=== PATIENT | male | born 1970 | race Caucasian/White ===

== ENCOUNTER 2019-12-28 00:42 | Emergency (ER) | payer SELFPAY ==
--- NOTE | 2019-12-28 01:03 | ER Document Report ---
ED Respiratory Problem - General Chief Complaint: Breathing Difficulty Stated Complaint: DIFFICULTY BREATHING Time Seen by Provider: 12/28/19 00:53 Mode of Arrival: Medic Information source: Patient Notes: Patient is a 49-year-old male with history of COPD presenting with cough, congestion and chills. Patient reports symptoms ongoing for the last few days. He denies any recent travel. Denies any exposure to any patients with COVID. Patient also reports nausea with vomiting over the last 24 hours that has now resolved. Denies any diarrhea or body aches. TRAVEL OUTSIDE OF THE [place] IN LAST 30 DAYS: No - Related Data Allergies/Adverse Reactions: No Known Allergies Allergy (Verified 03/19/15 17:25) Past Medical History - General Information source: Patient - Social History Smoking Status: Current Every Day Smoker Frequency of alcohol use: Occasional Family History: Other - Muscular dystrophy, CHF Patient has suicidal ideation: No Patient has homicidal ideation: No Pulmonary Medical History: Reports: Hx Asthma, Hx Bronchitis, Hx COPD, Hx Pneumonia Denies: Hx Tuberculosis Neurological Medical History: Denies: Hx Seizures GI Medical History: Reports: Hx Gastroesophageal Reflux Disease, Hx Hiatal Hernia, Hx Pancreatitis Musculoskeletal Medical History: Reports Hx Arthritis Psychiatric Medical History: Denies: Hx Depression Past Surgical History: Reports: Hx Abdominal Surgery - Repair of pancreatic aneurysm., Hx Orthopedic Surgery - rt knee. Denies: Hx Pacemaker - Immunizations Hx Diphtheria, Pertussis, Tetanus Vaccination: No Review of Systems - Review of Systems Constitutional: Chills EENT: No symptoms reported Cardiovascular: No symptoms reported Respiratory: Cough, Short of breath Gastrointestinal: Nausea, Vomiting Genitourinary: No symptoms reported Male Genitourinary: No symptoms reported Musculoskeletal: No symptoms reported Skin: No symptoms reported Hematologic/Lymphatic: No symptoms reported Neurological/Psychological: No symptoms reported Physical Exam - Vital signs Vitals: Pulse Ox 95 12/28/19 00:48 - Notes Notes: PHYSICAL EXAMINATION: GENERAL: Well-appearing, well-nourished and in no acute distress. HEAD: Atraumatic, normocephalic. EYES: Pupils equal round and reactive to light, extraocular movements intact, sclera anicteric, conjunctiva are normal. ENT: Nares patent, oropharynx clear without exudates. Moist mucous membranes. NECK: Normal range of motion, supple without lymphadenopathy LUNGS: Breath sounds clear to auscultation bilaterally and equal. No wheezes rales or rhonchi. HEART: Regular rate and rhythm without murmurs ABDOMEN: Soft, nontender, nondistended abdomen. No guarding, no rebound. No masses appreciated. Musculoskeletal: Normal range of motion, no pitting or edema. No cyanosis. NEUROLOGICAL: Cranial nerves grossly intact. Normal speech, normal gait. Normal sensory, motor exams PSYCH: Normal mood, normal affect. SKIN: Warm, Dry, normal turgor, no rashes or lesions noted. Course - Re-evaluation Re-evalutation: Patient appears well, nontoxic, work-up as outlined below. Patient received 125 Solu-Medrol and 1 DuoNeb by EMS. At the time of arrival he was mildly tachypneic but he had clear lung sounds and he reports he was feeling much improved. Laboratory 12/28/19 12/28/19 12/28/19 00:48 00:48 00:48 WBC 6.6 RBC 4.68 Hgb 13.5 Hct 40.7 MCV 87 MCH 28.9 MCHC 33.2 RDW 15.5 H Plt Count 77 L Lymph % (Auto) 21.2 [place] % (Auto) 7.2 Eos % (Auto) 0.6 Baso % (Auto) 0.6 Absolute Neuts (auto) 4.7 Absolute Lymphs (auto) 1.4 Absolute Monos (auto) 0.5 Absolute Eos (auto) 0.0 Absolute Basos (auto) 0.0 Seg Neutrophils % 70.4 VBG pH VBG pCO2 VBG HCO3 VBG Base Excess Sodium 135.7 L Potassium 3.4 L Chloride 99 Carbon Dioxide 30 Anion Gap 7 BUN 10 Creatinine 0.82 Est GFR ( Amer) > 60 Est GFR (MDRD) Non-Af > 60 Glucose 100 Calcium 8.4 Total Bilirubin 0.8 Direct Bilirubin 0.0 Neonat Total Bilirubin Not Reportable Neonat Direct Bilirubin Not Reportable Neonat Indirect Bili Not Reportable AST 32 ALT 13 Alkaline Phosphatase 141 H Troponin I < 0.012 NT-Pro-B Natriuret Pep 37 Total Protein 7.0 Albumin 3.7 Influenza A (Rapid) Influenza B (Rapid) 12/28/19 12/28/19 01:12 01:12 WBC RBC Hgb Hct MCV MCH MCHC RDW Plt Count Lymph % (Auto) [place] % (Auto) Eos % (Auto) Baso % (Auto) Absolute Neuts (auto) Absolute Lymphs (auto) Absolute Monos (auto) Absolute Eos (auto) Absolute Basos (auto) Seg Neutrophils % VBG pH 7.48 H VBG pCO2 42.0 VBG HCO3 30.7 VBG Base Excess 6.6 Sodium Potassium Chloride Carbon Dioxide Anion Gap BUN Creatinine Est GFR ( Amer) Est GFR (MDRD) Non-Af Glucose Calcium Total Bilirubin Direct Bilirubin Neonat Total Bilirubin Neonat Direct Bilirubin Neonat Indirect Bili AST ALT Alkaline Phosphatase Troponin I NT-Pro-B Natriuret Pep Total Protein Albumin Influenza A (Rapid) NEGATIVE Influenza B (Rapid) NEGATIVE Chest X-Ray 12/28/19 01:03 IMPRESSION: Chronic appearing pleural parenchymal scarring involving the left hemithorax is similar in appearance to prior exam. The possibility of superimposed infectious process is not excluded. Clinical correlation is advised. Patient was monitored in the emergency department for several hours. His vital signs have normalized. He will be treated for a COPD exacerbation. Although patient did complain of nausea and vomiting he has not had any episodes of vomiting here in the emergency department he will also be sent home with a dispense pack of Zofran for this. He was given information on the [facility] encouraged to follow-up with them to establish primary care. 12/28/19 03:33 - Vital Signs Vital signs: Temp Pulse Resp BP Pulse Ox 98.6 F 21 H 146/76 H 94 12/28/19 00:52 12/28/19 03:01 12/28/19 03:01 12/28/19 03:01 - Laboratory Result Diagrams: 12/28/19 00:48 12/28/19 00:48 Laboratory results interpreted by me: 12/28/19 12/28/19 12/28/19 00:48 00:48 01:12 RDW 15.5 H Plt Count 77 L VBG pH 7.48 H Sodium 135.7 L Potassium 3.4 L Alkaline Phosphatase 141 H Discharge - Discharge Clinical Impression: COPD exacerbation Condition: Stable Disposition: HOME, SELF-CARE Additional Instructions: You were seen for a COPD exacerbation. Your symptoms improved with treatment here in the emergency department. However, it is very important that you return to the emergency department immediately if you began to have worsening difficulty breathing that does not respond to your normal home nebulizers. You are also being sent home on a five-day course of steroids that you should start taking tomorrow. Please also take the antibiotics as prescribed. Please also follow closely with your primary care physician. You should eturn to emergency department if you develop fever greater than 101, persistent cough, persistent vomiting, pass out, or any other symptoms that are concerning to you. Prescriptions: Prednisone [Deltasone 20 mg Tablet] 2 tab PO DAILY 5 Days #10 tablet Doxycycline Hyclate [Vibramycin 100 mg Tablet] 100 mg PO BID #20 tablet
[2019-12-28 01:11] LABS: ABSOLUTE LYMPHOCYTES (AUTO) 1.4 10^3/uL (0.5-4.7); ABSOLUTE MONOCYTES (AUTO) 0.5 10^3/uL (0.1-1.4); ABSOLUTE NEUT (AUTO) 4.7 10^3/uL (1.7-8.2); BASOPHILS % (AUTO) 0.6 % (0-2); EOSINOPHILS % (AUTO) 0.6 % (0-6); HEMATOCRIT 40.7 % (37.9-51.0); HEMOGLOBIN 13.5 g/dL (13.5-17.0); LYMPHOCYTES % (AUTO) 21.2 % (13-45); MEAN CORPUSCULAR HEMOGLOBIN 28.9 pg (27.0-33.4); MEAN CORPUSCULAR HGB CONC 33.2 g/dL (32.0-36.0); MEAN CORPUSCULAR VOLUME 87 fl (80-97); MONOCYTES % (AUTO) 7.2 % (3-13); RED BLOOD COUNT 4.68 10^6/uL (4.35-5.55); RED CELL DISTRIBUTION WIDTH 15.5 % (11.5-14.0); SEGMENTED NEUTROPHILS % (AUTO) 70.4 % (42-78); TOTAL CELLS COUNTED % (AUTO) 100 %; WHITE BLOOD COUNT 6.6 10^3/uL (4.0-10.5)
[2019-12-28 01:19] LABS: ALBUMIN 3.7 g/dL (3.5-5.0); ALKALINE PHOSPHATASE 141 U/L (38-126); ANION GAP 7 (5-19); ASPARTATE AMINO TRANSFERASE 32 U/L (17-59); BILIRUBIN,TOTAL 0.8 mg/dL (0.2-1.3); BLOOD UREA NITROGEN 10 mg/dL (7-20); CALCIUM 8.4 mg/dL (8.4-10.2); CARBON DIOXIDE 30 mmol/L (22-30); CHLORIDE 99 mmol/L (98-107); GLUCOSE 100 mg/dL (75-110); POTASSIUM 3.4 mmol/L (3.6-5.0)
[2019-12-28 01:36] LABS: VENOUS BLOOD BASE EXCESS 6.6 mmol/L; VENOUS BLOOD HCO3 30.7 mmol/L (20-32); VENOUS BLOOD PH 7.48 (7.30-7.42)
[2019-12-28 01:45] LABS: NT PRO BNP 37 pg/mL (<125); PLATELET COUNT 77 10^3/uL (150-450); TROPONIN I < 0.012 ng/mL
--- NOTE | 2019-12-28 01:45 | RADIOLOGY REPORT (SQ) ---
EXAM DESCRIPTION: X-RAY CHEST- One View CLINICAL HISTORY: Cough and chills COMPARISON: June 08, 2014 TECHNIQUE: Single view of the chest. FINDINGS: Chronic appearing pleural parenchymal scarring along the left hemithorax is similar in appearance to prior exam, with stable blunting of the left costophrenic angle. The pulmonary vascularity is normal. The cardiomediastinal silhouette is stable in appearance. Osseous structures are grossly unchanged. IMPRESSION: Chronic appearing pleural parenchymal scarring involving the left hemithorax is similar in appearance to prior exam. The possibility of superimposed infectious process is not excluded. Clinical correlation is advised.
[2019-12-28 02:01] LABS: A TYPE INFLUENZA AG NEGATIVE (NEGATIVE); B INFLUENZA AG NEGATIVE (NEGATIVE)
[2019-12-28] MEDS ORDERED: DOXYCYCLINE HYCLATE 100 MG TABLET PO ONE (02:50)
[2019-12-28] MEDS ORDERED: PREDNISONE 20 MG TABLET PO ONE (02:50)
[2019-12-28 03:20] VITALS: BP 146/76
[2019-12-28] MEDS ORDERED: ONDANSETRON ODT 4 MG TAB (6 TAB/ER DISP) PO PRN (03:30)
--- NOTE | 2019-12-28 07:37 | EKG REPORT ---
SEVERITY:- OTHERWISE NORMAL ECG - SINUS RHYTHM LEFT AXIS DEVIATION : Confirmed by: Noé Cook MD 28-Dec-2019 07:37:15
== END 2019-12-28 03:38 | disposition home or self-care (01) ==
LOC: ER 00:42
DX: J44.1 Chronic obstructive pulmonary disease with (acute) exacerbation (principal); R05 Cough; R68.83 Chills (without fever); R11.2 Nausea with vomiting, unspecified; R06.02 Shortness of breath; F17.200 Nicotine dependence, unspecified, uncomplicated; Z87.01 Personal history of pneumonia (recurrent)
CPT/HCPCS: 93005; 99285; 36415; 87040; 85025; 80053; 84484; 82803; 87804; 83880; 71045; 93010; J7512

== ENCOUNTER 2020-08-06 21:14 | Inpatient (IN) | payer SELFPAY ==
[2020-08-06 21:37] LABS: VENOUS BLOOD BASE EXCESS -12.6 mmol/L; VENOUS BLOOD HCO3 14.3 mmol/L (20-32); VENOUS BLOOD PCO2 35.9 mmHg (35-63); VENOUS BLOOD PH 7.22 (7.30-7.42)
[2020-08-06 21:38] LABS: ABSOLUTE EOSINOPHILS # (AUTO) 0.1 10^3/uL (0.0-0.6); ABSOLUTE LYMPHOCYTES (AUTO) 0.9 10^3/uL (0.5-4.7); ABSOLUTE MONOCYTES (AUTO) 0.7 10^3/uL (0.1-1.4); ABSOLUTE NEUT (AUTO) 3.2 10^3/uL (1.7-8.2); BASOPHILS % (AUTO) 0.7 % (0-2); HEMATOCRIT 37.8 % (37.9-51.0); HEMOGLOBIN 12.2 g/dL (13.5-17.0); LYMPHOCYTES % (AUTO) 19.2 % (13-45); MEAN CORPUSCULAR HEMOGLOBIN 30.5 pg (27.0-33.4); MEAN CORPUSCULAR HGB CONC 32.2 g/dL (32.0-36.0); MEAN CORPUSCULAR VOLUME 95 fl (80-97); MONOCYTES % (AUTO) 14.9 % (3-13); PLATELET COUNT 185 10^3/uL (150-450); RED BLOOD COUNT 3.99 10^6/uL (4.35-5.55); RED CELL DISTRIBUTION WIDTH 14.3 % (11.5-14.0); SEGMENTED NEUTROPHILS % (AUTO) 64.2 % (42-78); TOTAL CELLS COUNTED % (AUTO) 100 %; WHITE BLOOD COUNT 4.9 10^3/uL (4.0-10.5)
[2020-08-06 21:52] LABS: ALBUMIN 3.3 g/dL (3.5-5.0); ALKALINE PHOSPHATASE 104 U/L (38-126); ASPARTATE AMINO TRANSFERASE 13 U/L (17-59); BILIRUBIN,DIRECT 0.2 mg/dL (0.0-0.4); BILIRUBIN,TOTAL 0.4 mg/dL (0.2-1.3); BLOOD UREA NITROGEN 12 mg/dL (7-20); CALCIUM 8.7 mg/dL (8.4-10.2); CARBON DIOXIDE 11 mmol/L (22-30); CHLORIDE 97 mmol/L (98-107); POTASSIUM 3.9 mmol/L (3.6-5.0); TOTAL PROTEIN 5.9 g/dL (6.3-8.2)
[2020-08-06 21:57] LABS: APPEARANCE,URINE CLEAR; BILIRUBIN,URINE NEGATIVE (NEGATIVE); COLOR,URINE STRAW; GLUCOSE, URINE >=500 mg/dL (NEGATIVE); KETONES,URINE 80 mg/dL (NEGATIVE); LEUKOCYTE ESTERASE,URINE NEGATIVE (NEGATIVE); NITRITE,URINE NEGATIVE (NEGATIVE); PROTEIN,URINE NEGATIVE (NEGATIVE); URINE SPECIFIC GRAVITY 1.026; UROBILINOGEN,URINE NEGATIVE mg/dL (<2.0)
[2020-08-06 21:59] LABS: ANION GAP 22 (5-19)
[2020-08-06 22:01] LABS: GLUCOSE 446 mg/dL (75-110)
[2020-08-06] MEDS ORDERED: RINGERS SOLUTION,LACTATED 1,000 ML IV ONE (22:07)
--- NOTE | 2020-08-06 22:07 | ER Document Report ---
ED General - General Chief Complaint: Dizziness Stated Complaint: DIZZINESS Time Seen by Provider: 08/06/20 21:58 Notes: Patient is a 50-year-old male that comes emergency department for chief complaint of 2 weeks of symptoms including dizziness, nausea, frequent urination, and he states he is suddenly started to lose weight "like crazy". He states he was unsteady on his feet and he was stumbling at home so he came in by ambulance for evaluation. He also notes that his legs have both become very swollen. He denies shortness of breath, chest pain, abdominal pain, fever/chills, headache. He does not have a history of diabetes. He has a history of COPD, continues to smoke, he also has a history of alcohol abuse and pancreatitis although he states he has not had alcohol in 2 weeks and he denies having withdrawal symptoms. He denies recreational drugs. TRAVEL OUTSIDE OF THE [place] IN LAST 30 DAYS: No - Related Data Allergies/Adverse Reactions: No Known Allergies Allergy (Verified 03/19/15 17:25) Past Medical History - General Information source: Patient - Social History Smoking Status: Current Every Day Smoker Frequency of alcohol use: Heavy Drug Abuse: None Lives with: Family Family History: Other - Muscular dystrophy, CHF Patient has homicidal ideation: No Pulmonary Medical History: Reports: Hx Asthma, Hx Bronchitis, Hx COPD, Hx Pneumonia Denies: Hx Tuberculosis Neurological Medical History: Denies: Hx Seizures GI Medical History: Reports: Hx Gastroesophageal Reflux Disease, Hx Hiatal Hernia, Hx Pancreatitis Musculoskeletal Medical History: Reports Hx Arthritis Psychiatric Medical History: Denies: Hx Depression Past Surgical History: Reports: Hx Abdominal Surgery - Repair of pancreatic aneurysm., Hx Orthopedic Surgery - rt knee. Denies: Hx Pacemaker - Immunizations Hx Diphtheria, Pertussis, Tetanus Vaccination: No Review of Systems - Review of Systems Constitutional: See HPI EENT: No symptoms reported Cardiovascular: No symptoms reported Respiratory: No symptoms reported Gastrointestinal: See HPI Genitourinary: No symptoms reported Male Genitourinary: No symptoms reported Musculoskeletal: No symptoms reported Skin: No symptoms reported Hematologic/Lymphatic: No symptoms reported Neurological/Psychological: See HPI Physical Exam - Vital signs Vitals: Resp Pulse Ox 17 92 08/06/20 21:23 08/06/20 21:23 - Notes Notes: GENERAL: Somewhat gaunt and chronically unwell appearing, however he does not appear to be in distress HEAD: Normocephalic, atraumatic. EYES: Pupils equal, round, and reactive to light. Extraocular movements intact. ENT: Oral mucosa dry, tongue midline. Oropharynx unremarkable. Airway patent. NECK: Full range of motion. Supple. Trachea midline. No lymphadenopathy. LUNGS: Clear to auscultation bilaterally, no wheezes, rales, or rhonchi. No respiratory distress. Non-tender chest wall. HEART: Regular rate and rhythm. No murmur ABDOMEN: Soft, non-tender. Non-distended. EXTREMITIES: Moves all 4 extremities spontaneously. No edema, normal radial and dorsalis pedis pulses bilaterally. No cyanosis. BACK: no cervical, thoracic, lumbar midline tenderness. No saddle anesthesia, normal distal neurovascular exam. Moves all extremities in full range of motion. NEUROLOGICAL: Alert and oriented x3. Normal speech. Cranial nerves II through XII grossly intact. Strength 5/5 in all extremities. PSYCH: Normal affect, normal mood. SKIN: Shun complexion Course - Re-evaluation Re-evalutation: Patient is thin, gaunt, somewhat unwell appearing but he is not in distress. His vital signs are unremarkable. He is cooperative and coherent. No concerning findings noted on physical exam other than dry mucous membranes. CBC shows mild normocytic anemia, chemistry concerning with bicarbonate of 11, elevated anion gap of 22, blood glucose of 467 in a patient with no previous history of diabetes renal functioning unremarkable. Lipase unremarkable. Potassium 3.9. Patient given 250 mL lactated Ringer bolus by EMS and 1000 mg bolus here. I suspect patient's new onset type 1 diabetes is secondary to his frequent pancreatitis and former alcohol abuse. Ketones noted in the urine. V enous blood gas is also noted to have metabolic acidosis, clinical picture is consistent with DKA and a new onset diabetic, patient was started on insulin drip and will require admission. I discussed with patient in detail. Patient states appreciation and agreement. Discussed with Dr. Duncan, hospitalist, patient accepted to [facility] full admission. - Vital Signs Vital signs: Temp Pulse Resp BP Pulse Ox 97.7 F 63 16 101/55 L 96 08/07/20 04:09 08/07/20 04:09 08/07/20 04:09 08/07/20 04:09 08/07/20 04:09 - Laboratory Result Diagrams: 08/06/20 21:23 08/06/20 21:23 Laboratory results interpreted by me: 08/06/20 08/06/20 08/06/20 21:23 21:23 21:23 RBC 3.99 L Hgb 12.2 L Hct 37.8 L RDW 14.3 H [place] % (Auto) 14.9 H VBG pH 7.22 L VBG HCO3 14.3 L Sodium 130.1 L Chloride 97 L Carbon Dioxide 11 L Anion Gap 22 H Glucose 446 H* AST 13 L Total Protein 5.9 L Albumin 3.3 L Urine Glucose (UA) Urine Ketones 08/06/20 21:37 RBC Hgb Hct RDW [place] % (Auto) VBG pH VBG HCO3 Sodium Chloride Carbon Dioxide Anion Gap Glucose AST Total Protein Albumin Urine Glucose (UA) >=500 H Urine Ketones 80 H - EKG Interpretation by Me Additional EKG results interpreted by me: EKG shows sinus rhythm at a rate of 72, left axis deviation, QTC of 491. No T wave inversions or ST segment changes in consecutive leads Discharge - Discharge Clinical Impression: Dizziness DKA (diabetic ketoacidoses) Qualifiers: Diabetes mellitus type: type 2 Diabetes mellitus complication detail: without coma Qualified Code(s): E11.10 - Type 2 diabetes mellitus with ketoacidosis without coma Condition: Stable Disposition: ADMITTED INPATIENT Admitting Provider: Perla (Hospitalist) Unit Admitted: [facility]
[2020-08-06] MEDS ORDERED: NORMAL SALINE 100 ML with INSULIN REGULAR, HUMAN 100 UNIT IV PRN ×2 (22:12)
[2020-08-06] MEDS ORDERED: DEXTROSE 50%-WATER 25 GM/50 ML DISP.SYRIN IV PRN ×2 (22:12)
[2020-08-06] MEDS ORDERED: GLUCAGON,HUMAN RECOMB 1 MG INJ IM PRN (22:12)
[2020-08-06] MEDS ORDERED: DEXTROSE 40% GEL 15 GM TUBE PO PRN ×2 (22:12)
[2020-08-06] MEDS ORDERED: INSULIN REG, HUMAN 100 UNIT/ML 3 ML VIAL (PYX) ONE (22:28)
--- NOTE | 2020-08-06 22:58 | RADIOLOGY REPORT (SQ) ---
EXAM DESCRIPTION: XR CHEST 1 VIEW COMPLETED DATE/TME: 08/06/2020 22:07 CLINICAL HISTORY: 50 years, Male, weakness COMPARISON: None. NUMBER OF VIEWS: 1 TECHNIQUE: Portable AP upright view of the chest was obtained at 10:30 PM. LIMITATIONS: None. FINDINGS: Chronic pleural parenchymal scarring changes are again identified on the left. There has been a slight increase in opacity within the periphery of the left midlung zone with superimposed pneumonia not excluded. Right lung is clear. Heart size is normal. There is no definite pleural effusion or pneumothorax. IMPRESSION: Mild asymmetric increased opacity in the periphery of the left midlung zone which could represent pneumonia superimposed on underlying scarring. Clinical correlation and attention on short-term follow-up chest x-ray recommended. copyright 2010 [employer]- All Rights Reserved
[2020-08-06] MEDS ORDERED: POTASSI CL 20 MEQ/50 ML RIDER 20 MEQ/50 ML RTUPB IV ONE (23:28)
[2020-08-06] MEDS ORDERED: MAGNESIUM HYDROXIDE SUSP 30 ML UDCUP PO PRN (23:59)
[2020-08-06] MEDS ORDERED: POTASSI CL 20 MEQ/NS 1L 1,000 ML IV PRN (23:59)
[2020-08-06] MEDS ORDERED: MAG HYDROX/AL HYDROX/SIMETH SUSP 30 ML UDCUP PO PRN (23:59)
[2020-08-07] MEDS ORDERED: NICOTINE 21 MG/24 HR PATCH.TD24 TD PRN (00:12)
[2020-08-07] MEDS ORDERED: LEVALBUTEROL HCL NEB 0.63 MG/3 ML AMPUL NEB PRN (00:12)
[2020-08-07] MEDS ORDERED: DIAZEPAM INJ 10 MG/2 ML DISP.SYRIN IV PRN (00:12)
[2020-08-07] MEDS ORDERED: DEXTROSE 5%-WATER 1000 ML 1,000 ML with SODIUM BICARBONATE 150 MEQ IV PRN ×2 (00:12)
[2020-08-07] MEDS ORDERED: ACETAMINOPHEN 650 MG SUPP.RECT PR PRN (00:19)
[2020-08-07] MEDS ORDERED: ACETAMINOPHEN 325 MG TABLET PO PRN (00:19)
[2020-08-07] MEDS ORDERED: MELATONIN 5 MG TABLET PO PRN (00:19)
[2020-08-07] MEDS ORDERED: GUAIFENESIN SYRP 200 MG/10 ML UDC PO PRN (00:19)
[2020-08-07] MEDS ORDERED: NORMAL SALINE 100 ML with INSULIN REGULAR, HUMAN 100 UNIT IV PRN ×2 (00:23)
[2020-08-07] MEDS ORDERED: DEXTROSE 40% GEL 15 GM TUBE PO PRN ×2 (00:23)
[2020-08-07] MEDS ORDERED: DEXTROSE 50%-WATER 25 GM/50 ML DISP.SYRIN IV PRN ×2 (00:23)
[2020-08-07] MEDS ORDERED: GLUCAGON,HUMAN RECOMB 1 MG INJ IM PRN (00:23)
[2020-08-07] MEDS ORDERED: INSULIN REG, HUMAN 100 UNIT/ML 3 ML VIAL (PYX) ONE (01:08)
[2020-08-07] MEDS: FAMOTIDINE INJ/PF 20 MG/2 ML SDV IV SCH ×3 (01:38→21:29)
[2020-08-07] MEDS ORDERED: SODIUM BICARBONATE 8.4% INJ 50 MEQ/50 ML DISP.SYRIN ONE ×2 (01:45→01:48)
[2020-08-07] MEDS: HEPARIN SOD (PORCINE) 5,000 UNIT/ML 1 ML VIAL SUBCUT SCH ×3 (05:25→21:25)
--- NOTE | 2020-08-07 05:49 | PDOC H&P ---
History of Present Illness Admission Date/PCP: 08/06/2020 23:38 No local PCP Patient complains of: Dizziness History of Present Illness: DONAVAN OSBORNE is a 50 year old male who presents to the emergency room with a 2- week history of dizziness. He admits developing orthostatic dizziness accom panied by nausea and associated with polyuria, weight loss, malaise and lower extremity edema. All of his symptoms have gradually increased in severity over the course of 2 weeks with his dizziness becoming severe today. He denies other associated or accompanying signs and symptoms. He denies prior similar episodes. He has not identified any aggravating or ameliorating factors for his orthostatic dizziness. In the emergency room he was found to have a blood sugar of 446, a potassium of 3.9, a venous blood gas pH of 7.22, a CO2 of 11 and ketonuria. He was started on an insulin infusion in the ER and subsequently admitted to the hospital for further evaluation and treatment. Past Medical History Cardiac Medical History: Denies: Atrial Fibrillation, Congestive Heart Failure, Coronary Artery Disease, DVT, Hyperlipidema, Hypertension, Pulmonary Embolism Pulmonary Medical History: Reports: Asthma, Bronchitis, Chronic Obstructive Pulmonary Disease (COPD), Pneumonia Denies: Tuberculosis EENT Medical History: Denies: Cataracts, Ears - Hearing aids Neurological Medical History: Denies: Hemorrhagic CVA, Ischemic CVA, Seizures Endocrine Medical History: Denies: Diabetes Mellitus Type 1, Diabetes Mellitus Type 2, Hyperthyroidism, Hypothyroidism, Obesity Renal/ Medical History: Denies: Chronic Kidney Disease, Nephrolithiasis Malignancy Medical History: Reports: None GI Medical History: Reports: Gastroesophageal Reflux Disease, Hiatal Hernia, Other - Alcoholic pancreatitis Denies: Cirrhosis, Hepatitis Musculoskeltal Medical History: Reports: Arthritis Denies: Gout Skin Medical History: Denies: Eczema, Psoriasis Psychiatric Medical History: Reports: Alcohol Dependency, Tobacco Dependency Denies: Depression, Substance Abuse Hematology: Denies: Anemia, Bleeding Tendencies Infectious Medical History: Reports: None Past Surgical History Past Surgical History: Reports: Orthopedic Surgery - rt knee, Other - Pancreatic pseudocyst drainage Social History Information Source: Patient Lives with: Spouse/Significant other Smoking Status: Current Every Day Smoker Electronic Cigarette use?: No Frequency of Alcohol Use: Heavy - No longer drinks on a daily basis but admits occasional binges Hx Recreational Drug Use: No Drugs: None Hx Prescription Drug Abuse: No - Advance Directive Resuscitation Status: Full Code Surrogate healthcare decision maker:: Dimple Castro Family History Family History: Other - Muscular dystrophy, CHF. denies: CAD, DM, Hypertension, Malignancy Parental Family History Reviewed: Yes Children Family History Reviewed: No Sibling(s) Family History Reviewed.: Yes Medication/Allergy Home Medications: Levofloxacin [Levaquin 750 mg Tablet] 750 mg PO DAILY #5 tablet 03/28/15 Doxycycline Hyclate [Vibramycin 100 mg Tablet] 100 mg PO BID #20 tablet 12/28/19 Prednisone [Deltasone 20 mg Tablet] 2 tab PO DAILY 5 Days #10 tablet 12/28/19 Allergies/Adverse Reactions: No Known Allergies Allergy (Verified 03/19/15 17:25) Review of Systems Constitutional: PRESENT: as per HPI, weight loss, other - Malaise. ABSENT: chills, fever(s) Eyes: ABSENT: visual disturbances, other - Eye pain Ears: ABSENT: hearing changes, other - Ear pain Nose, Mouth, and Throat: ABSENT: headache(s), sore throat Cardiovascular: PRESENT: as per HPI, edema. ABSENT: chest pain, palpitations Respiratory: ABSENT: cough, dyspnea Gastrointestinal: PRESENT: as per HPI, nausea. ABSENT: abdominal pain, constipation, diarrhea, vomiting Genitourinary: PRESENT: as per HPI, other - Polyuria. ABSENT: dysuria, hematuria Musculoskeletal: ABSENT: back pain, joint swelling Integumentary: ABSENT: pruritus, rash Neurological: PRESENT: as per HPI, dizziness. ABSENT: confusion, convulsions, focal weakness, memory loss, syncope Psychiatric: ABSENT: anxiety, depression Endocrine: PRESENT: polyuria. ABSENT: cold intolerance, heat intolerance Hematologic/Lymphatic: ABSENT: easy bleeding, easy bruising Allergic/Immunologic: ABSENT: seasonal rhinorrhea Physical Exam Vital Signs: Temp Pulse Resp BP Pulse Ox 97.6 F 87 12 121/77 96 08/06/20 21:32 08/06/20 21:34 08/06/20 22:01 08/06/20 22:00 08/06/20 22:01 Intake & Output 08/04/20 08/05/20 08/06/20 23:59 23:59 22:59 Weight 62.5 kg General appearance: PRESENT: no acute distress, cooperative Head exam: PRESENT: atraumatic, normocephalic Eye exam: PRESENT: conjunctiva pink. ABSENT: conjunctival injection, scleral icterus Ear exam: PRESENT: normal external ear exam. ABSENT: bleeding, drainage Mouth exam: PRESENT: dry mucosa, neck supple Neck exam: ABSENT: thyromegaly, tracheal deviation Respiratory exam: PRESENT: clear to auscultation dariana, symmetrical, unlabored Cardiovascular exam: PRESENT: RRR. ABSENT: clicks, gallop, rubs Pulses: PRESENT: normal carotid pulses, normal radial pulses Vascular exam: PRESENT: normal capillary refill. ABSENT: pallor GI/Abdominal exam: PRESENT: normal bowel sounds, soft. ABSENT: tenderness Rectal exam: PRESENT: deferred Extremities exam: PRESENT: pedal edema - Bilateral, +2 edema - 2+ pitting edema bilateral lower extremities to the distal thigh. ABSENT: joint swelling Musculoskeletal exam: ABSENT: deformity, dislocation Neurological exam: PRESENT: alert, oriented to person, oriented to place, oriented to time, oriented to situation, CN II-XII grossly intact. ABSENT: motor sensory deficit Psychiatric exam: PRESENT: appropriate affect, normal mood Skin exam: PRESENT: dry, intact, warm. ABSENT: jaundice, rash, urticaria Results Laboratory Results: 08/06/20 21:23 08/06/20 21:23 08/06/20 08/06/20 08/06/20 21:23 21:23 21:23 WBC 4.9 RBC 3.99 L Hgb 12.2 L Hct 37.8 L MCV 95 MCH 30.5 MCHC 32.2 RDW 14.3 H Plt Count 185 Seg Neutrophils % 64.2 VBG pH 7.22 L VBG pCO2 35.9 VBG HCO3 14.3 L VBG Base Excess -12.6 Sodium 130.1 L Potassium 3.9 Chloride 97 L Carbon Dioxide 11 L Anion Gap 22 H BUN 12 Creatinine 0.57 Est GFR ( Amer) > 60 Glucose 446 H* Calcium 8.7 Total Bilirubin 0.4 AST 13 L Alkaline Phosphatase 104 Total Protein 5.9 L Albumin 3.3 L Lipase Urine Color Urine Appearance Urine pH Ur Specific [place] Urine Protein Urine Glucose (UA) Urine Ketones Urine Blood Urine Nitrite Ur Leukocyte Esterase Urine WBC (Auto) Urine RBC (Auto) 08/06/20 08/06/20 21:23 21:37 WBC RBC Hgb Hct MCV MCH MCHC RDW Plt Count Seg Neutrophils % VBG pH VBG pCO2 VBG HCO3 VBG Base Excess Sodium Potassium Chloride Carbon Dioxide Anion Gap BUN Creatinine Est GFR ( Amer) Glucose Calcium Total Bilirubin AST Alkaline Phosphatase Total Protein Albumin Lipase 47.4 Urine Color STRAW Urine Appearance CLEAR Urine pH 6.0 Ur Specific [place] 1.026 Urine Protein NEGATIVE Urine Glucose (UA) >=500 H Urine Ketones 80 H Urine Blood NEGATIVE Urine Nitrite NEGATIVE Ur Leukocyte Esterase NEGATIVE Urine WBC (Auto) 0 Urine RBC (Auto) 0 Impressions: Chest X-Ray 08/06/20 22:07 IMPRESSION: Mild asymmetric increased opacity in the periphery of the left midlung zone which could represent pneumonia superimposed on underlying scarring. Clinical correlation and attention on short-term follow-up chest x-ray recommended. copyright 2010 [employer]- All Rights Reserved Assessment and Plan - Diagnosis (1) DKA (diabetic ketoacidoses) Qualifiers: Diabetes mellitus type: type 2 Diabetes mellitus complication detail: without coma Qualified Code(s): E11.10 - Type 2 diabetes mellitus with ketoacidosis without coma Is this a current diagnosis for this admission?: Yes (2) GERD (gastroesophageal reflux disease) Qualifiers: Esophagitis presence: with esophagitis Esophagitis bleeding: without hemorrhage Qualified Code(s): K21.00 - Gastro-esophageal reflux disease with esophagitis, without bleeding Is this a current diagnosis for this admission?: Yes (3) Chronic obstructive pulmonary disease (COPD) Qualifiers: COPD type: unspecified COPD Qualified Code(s): J44.9 - Chronic obstructive pulmonary disease, unspecified Is this a current diagnosis for this admission?: Yes (4) Bilateral lower extremity edema Is this a current diagnosis for this admission?: Yes (5) Tobacco abuse Is this a current diagnosis for this admission?: Yes - Plan Summary Summary: Patient will be admitted to [facility] where he will receive routine supportive and symptomatic cares. He will be treated with an insulin infusion per protocol. He will receive a bicarbonate infusion over the course of 3 hours. He will receive IV fluids using normal saline with 20 mEq potassium chloride per liter at 250 mL/h. Patient will be observed closely for any signs of alcohol withdrawal and will be treated with Valium 10 mg IV every 1 hour as needed for severe alcohol withdrawal symptoms. Serial metabolic profiles will be obtained. Serial venous blood gases will be obtained. An echocardiogram will be obtained. A registered dietitian consultation will be obtained. Patient will be maintained on a diabetic diet as tolerated. Smoking cessation is advised and counseled briefly at the bedside. A nicotine replacement patch is available for the patient's use, if desired. Additional laboratory and/or radiographic evaluations will be obtained as needed. - Time Time Spent with patient: 15-24 minutes Smoking Cessation Education: 3 to 10 minutes Medications reviewed and adjusted accordingly: No - No home meds Anticipated Discharge Disposition: Home, Self Care Anticipated Discharge Timeframe: within 72 hours - Inpatient Certification Based on my medical assessment, after consideration of the patient's comorbidities, presenting symptoms, or acuity I expect that the services needed warrant INPATIENT care.: Yes I certify that my determination is in accordance with my understanding of Medicare's requirements for reasonable and necessary INPATIENT services [42 CFR 412.3e].: Yes Medical Necessity: Need Close Monitoring Due to Risk of Patient Decompensation, Need For IV Fluids, Need For Continuous Telemetry Monitoring, Risk of Complication if Not Cared For in Hospital
--- NOTE | 2020-08-07 06:25 | EKG REPORT ---
SEVERITY:- BORDERLINE ECG - SINUS RHYTHM LEFT AXIS DEVIATION BORDERLINE PROLONGED QT INTERVAL : Confirmed by: Noé Cook MD 07-Aug-2020 06:23:58
[2020-08-07 06:29] LABS: VENOUS BLOOD BASE EXCESS -2.3 mmol/L; VENOUS BLOOD HCO3 23.6 mmol/L (20-32); VENOUS BLOOD PCO2 44.7 mmHg (35-63); VENOUS BLOOD PH 7.34 (7.30-7.42)
[2020-08-07 06:36] LABS: HEMATOCRIT 34.6 % (37.9-51.0); HEMOGLOBIN 11.9 g/dL (13.5-17.0); MEAN CORPUSCULAR HEMOGLOBIN 30.6 pg (27.0-33.4); MEAN CORPUSCULAR HGB CONC 34.4 g/dL (32.0-36.0); PLATELET COUNT 168 10^3/uL (150-450); RED BLOOD COUNT 3.89 10^6/uL (4.35-5.55); RED CELL DISTRIBUTION WIDTH 13.5 % (11.5-14.0); WHITE BLOOD COUNT 4.6 10^3/uL (4.0-10.5)
[2020-08-07 06:37] LABS: MEAN CORPUSCULAR VOLUME 89 fl (80-97)
[2020-08-07 06:52] LABS: ANION GAP 9 (5-19); BLOOD UREA NITROGEN 7 mg/dL (7-20); CALCIUM 7.6 mg/dL (8.4-10.2); CHLORIDE 102 mmol/L (98-107); CHOLESTEROL 78.12 mg/dL (0-200); GLUCOSE 102 mg/dL (75-110); TRIGLYCERIDES 69 mg/dL (<150)
[2020-08-07 07:25] LABS: CARBON DIOXIDE 22 mmol/L (22-30); DIRECT LDL < 30 mg/dL (<100)
[2020-08-07 07:27] LABS: POTASSIUM 2.9 mmol/L (3.6-5.0)
[2020-08-07] MEDS: METOCLOPRAMIDE HCL INJ/PF 10 MG/2 ML SDV IV SCH ×4 (08:18→21:29)
[2020-08-07] MEDS: POTASSI CL 20 MEQ/50 ML RIDER 20 MEQ/50 ML RTUPB IV SCH ×3 (08:18→10:58)
[2020-08-07] MEDS ORDERED: NORMAL SALINE 1000 ML 1,000 ML IV PRN (08:23)
[2020-08-07] MEDS: MAGNESIUM SULFATE/D5W 1 GM/100 ML RTUPB IV SCH ×3 (08:27→10:58)
[2020-08-07] MEDS ORDERED: LORAZEPAM INJ 2 MG/1 ML VIAL IV PRN ×7 (08:28→08:50)
[2020-08-07] MEDS: DOCUSATE SODIUM 100 MG CAPSULE PO SCH ×2 (09:42→17:40)
[2020-08-07] MEDS ORDERED: DOCUSATE SODIUM 100 MG/10 ML UDC PO SCH (10:00)
[2020-08-07 10:29] LABS: ALBUMIN 2.1 g/dL (3.5-5.0); ALKALINE PHOSPHATASE 63 U/L (38-126); ANION GAP 9 (5-19); ASPARTATE AMINO TRANSFERASE 12 U/L (17-59); BILIRUBIN,DIRECT 0.1 mg/dL (0.0-0.4); BILIRUBIN,TOTAL 0.2 mg/dL (0.2-1.3); BLOOD UREA NITROGEN 6 mg/dL (7-20); CALCIUM 7.3 mg/dL (8.4-10.2); CARBON DIOXIDE 19 mmol/L (22-30); CHLORIDE 105 mmol/L (98-107); GLUCOSE 136 mg/dL (75-110); POTASSIUM 3.4 mmol/L (3.6-5.0); TOTAL PROTEIN 4.3 g/dL (6.3-8.2)
[2020-08-07 15:24] LABS: ALBUMIN 2.2 g/dL (3.5-5.0); ALKALINE PHOSPHATASE 67 U/L (38-126); ANION GAP 9 (5-19); ASPARTATE AMINO TRANSFERASE 12 U/L (17-59); BILIRUBIN,DIRECT 0.1 mg/dL (0.0-0.4); BILIRUBIN,TOTAL 0.3 mg/dL (0.2-1.3); BLOOD UREA NITROGEN 5 mg/dL (7-20); CALCIUM 7.2 mg/dL (8.4-10.2); CARBON DIOXIDE 17 mmol/L (22-30); CHLORIDE 104 mmol/L (98-107); GLUCOSE 272 mg/dL (75-110); POTASSIUM 3.8 mmol/L (3.6-5.0); TOTAL PROTEIN 4.4 g/dL (6.3-8.2)
[2020-08-07] MEDS: INSULIN LISPRO 100 UNIT/ML 3 ML VIAL SUBCUT SCH ×3 (16:12→21:26)
[2020-08-07] MEDS ORDERED: IPRATROPIUM/ALBUTEROL 0.5-2.5 MG/3 ML AMPUL NEB PRN (17:00)
--- NOTE | 2020-08-07 17:01 | PDOC PROGRESS REPORT ---
Subjective Progress Note for:: 08/07/20 Subjective:: DONAVAN OSBORNE is a 50 year old male who presents to the emergency room with a 2- week history of dizziness. He admits developing orthostatic dizziness accompanied by nausea and associated with polyuria, weight loss, malaise and lower extremity edema. All of his symptoms have gradually increased in severity over the course of 2 weeks with his dizziness becoming severe today. He denies other associated or accompanying signs and symptoms. He denies prior similar e pisodes. He has not identified any aggravating or ameliorating factors for his orthostatic dizziness. In the emergency room he was found to have a blood sugar of 446, a potassium of 3.9, a venous blood gas pH of 7.22, a CO2 of 11 and ketonuria. He was started on an insulin infusion in the ER and subsequently admitted to the hospital for further evaluation and treatment. D2 Hospital stay. He was seen and bedside. He reports feeling much better. Denies any nausea and vomiting no chest pain no shortness of breath. When asked about his alcohol use he claimed that his last drink was 1 month ago. However when the nurse called his she claimed that he drank a fifth of alcohol a few days ago. He is not aware of any previous diagnosis of DM but he does have a history of pancreatitis. He also noted that he has been peeing a lot and drinking a lot the past few days and has lost weight. Reason For Visit: DIABETIC KETOACIDOSIS Physical Exam Vital Signs: Temp Pulse Resp BP Pulse Ox 97.6 F 74 14 98/60 L 97 08/07/20 11:14 08/07/20 14:00 08/07/20 13:12 08/07/20 11:14 08/07/20 13:12 Intake & Output 08/06/20 08/07/20 08/08/20 06:59 06:59 06:59 Intake Total 1277 797 Output Total 200 300 Balance 1077 497 Weight 71.5 kg General appearance: PRESENT: no acute distress, cooperative Head exam: PRESENT: atraumatic, normocephalic Eye exam: PRESENT: EOMI, PERRLA Mouth exam: PRESENT: moist Neck exam: PRESENT: full ROM Cardiovascular exam: PRESENT: RRR, +S1, +S2 Pulses: PRESENT: +2 pedal pulses bilateral GI/Abdominal exam: PRESENT: normal bowel sounds, soft. ABSENT: rebound, tenderness Extremities exam: PRESENT: +2 edema Musculoskeletal exam: PRESENT: full ROM Neurological exam: PRESENT: alert, awake, oriented to person, oriented to place, oriented to time, oriented to situation Psychiatric exam: PRESENT: normal mood Skin exam: PRESENT: normal color Results Laboratory Results: 08/07/20 06:21 08/07/20 14:32 08/06/20 08/06/20 08/06/20 21:23 21:23 21:23 WBC 4.9 RBC 3.99 L Hgb 12.2 L Hct 37.8 L MCV 95 MCH 30.5 MCHC 32.2 RDW 14.3 H Plt Count 185 Seg Neutrophils % 64.2 VBG pH 7.22 L VBG pCO2 35.9 VBG HCO3 14.3 L VBG Base Excess -12.6 Sodium 130.1 L Potassium 3.9 Chloride 97 L Carbon Dioxide 11 L Anion Gap 22 H BUN 12 Creatinine 0.57 Est GFR ( Amer) > 60 Glucose 446 H* Calcium 8.7 Magnesium Total Bilirubin 0.4 AST 13 L Alkaline Phosphatase 104 Total Protein 5.9 L Albumin 3.3 L Triglycerides Cholesterol LDL Cholesterol Direct VLDL Cholesterol HDL Cholesterol Lipase TSH Urine Color Urine Appearance Urine pH Ur Specific [place] Urine Protein Urine Glucose (UA) Urine Ketones Urine Blood Urine Nitrite Ur Leukocyte Esterase Urine WBC (Auto) Urine RBC (Auto) 08/06/20 08/06/20 08/06/20 21:23 21:23 21:37 WBC RBC Hgb Hct MCV MCH MCHC RDW Plt Count Seg Neutrophils % VBG pH VBG pCO2 VBG HCO3 VBG Base Excess Sodium Potassium Chloride Carbon Dioxide Anion Gap BUN Creatinine Est GFR ( Amer) Glucose Calcium Magnesium Total Bilirubin AST Alkaline Phosphatase Total Protein Albumin Triglycerides Cholesterol LDL Cholesterol Direct VLDL Cholesterol HDL Cholesterol Lipase 47.4 TSH 2.64 Urine Color STRAW Urine Appearance CLEAR Urine pH 6.0 Ur Specific [place] 1.026 Urine Protein NEGATIVE Urine Glucose (UA) >=500 H Urine Ketones 80 H Urine Blood NEGATIVE Urine Nitrite NEGATIVE Ur Leukocyte Esterase NEGATIVE Urine WBC (Auto) 0 Urine RBC (Auto) 0 08/07/20 08/07/20 08/07/20 06:21 06:21 06:21 WBC 4.6 RBC 3.89 L Hgb 11.9 L Hct 34.6 L MCV 89 D MCH 30.6 MCHC 34.4 RDW 13.5 Plt Count 168 Seg Neutrophils % VBG pH 7.34 VBG pCO2 44.7 VBG HCO3 23.6 VBG Base Excess -2.3 Sodium 132.6 L Potassium 2.9 L* D Chloride 102 Carbon Dioxide 22 D Anion Gap 9 BUN 7 Creatinine 0.31 L Est GFR ( Amer) > 60 Glucose 102 Calcium 7.6 L Magnesium 1.2 L* Total Bilirubin AST Alkaline Phosphatase Total Protein Albumin Triglycerides 69 Cholesterol 78.12 LDL Cholesterol Direct < 30 VLDL Cholesterol 14.0 HDL Cholesterol 40 Lipase TSH Urine Color Urine Appearance Urine pH Ur Specific [place] Urine Protein Urine Glucose (UA) Urine Ketones Urine Blood Urine Nitrite Ur Leukocyte Esterase Urine WBC (Auto) Urine RBC (Auto) 08/07/20 08/07/20 09:42 14:32 WBC RBC Hgb Hct MCV MCH MCHC RDW Plt Count Seg Neutrophils % VBG pH VBG pCO2 VBG HCO3 VBG Base Excess Sodium 132.8 L 129.9 L Potassium 3.4 L 3.8 Chloride 105 104 Carbon Dioxide 19 L 17 L Anion Gap 9 9 BUN 6 L 5 L Creatinine 0.29 L 0.48 L Est GFR ( Amer) > 60 > 60 Glucose 136 H 272 H Calcium 7.3 L 7.2 L Magnesium Total Bilirubin 0.2 0.3 AST 12 L 12 L Alkaline Phosphatase 63 67 Total Protein 4.3 L 4.4 L Albumin 2.1 L 2.2 L Triglycerides Cholesterol LDL Cholesterol Direct VLDL Cholesterol HDL Cholesterol Lipase TSH Urine Color Urine Appearance Urine pH Ur Specific [place] Urine Protein Urine Glucose (UA) Urine Ketones Urine Blood Urine Nitrite Ur Leukocyte Esterase Urine WBC (Auto) Urine RBC (Auto) Impressions: Chest X-Ray 08/06/20 22:07 IMPRESSION: Mild asymmetric increased opacity in the periphery of the left midlung zone which could represent pneumonia superimposed on underlying scarring. Clinical correlation and attention on short-term follow-up chest x-ray recommended. copyright 2011 [employer]- All Rights Reserved Assessment and Plan - Diagnosis (1) DKA (diabetic ketoacidoses) Qualifiers: Diabetes mellitus type: type 2 Diabetes mellitus complication detail: without coma Qualified Code(s): E11.10 - Type 2 diabetes mellitus with ketoacidosis without coma Is this a current diagnosis for this admission?: Yes Plan: -Not a known diabetic, came in due to dizziness, polyuria weight loss and lower extremity edema. 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 - history of recurrent pancreatitis - BG 446 in the ED with ketonuria - awaiting A1c - transitioned to long acting and with meals insulin plus sliding scale - Carb diet - plumber helper - hypoglycemia protocol - would need insulin on discharge (3) Alcohol use disorder Is this a current diagnosis for this admission?: Yes Plan: - according to him his last drink was 1 month ago but according to his he had been drinking consistently up until a few days ago - CIWA score q4 - ativan IV PRN according to CIWA score (4) Hypokalemia Is this a current diagnosis for this admission?: Yes Plan: - K 2.9>3.4>3.8 - 2/2 acidosis from DKA and insulin - replaced via IV - BMP daily (5) Bilateral lower extremity edema Is this a current diagnosis for this admission?: Yes Plan: - 2+ pitting edema no history of CHF - BNP pending - can be from new onset CHF or from hypoalbuminemia from poor oral intake due to alcoholism - alb 2.2 - awaiting echo - will monitor respiratory status as we are still hydrating him for DKA - leg elevation (6) Hyponatremia Is this a current diagnosis for this admission?: Yes Plan: - Na 129.9 corrected NA 132 - mild hyponatremia - will monitor for now (7) DVT prophylaxis Is this a current diagnosis for this admission?: Yes Plan: - sq heparin (8) Tobacco abuse Is this a current diagnosis for this admission?: Yes Plan: - counseling done - nicotine patch (9) Chronic obstructive pulmonary disease (COPD) Qualifiers: COPD type: unspecified COPD Qualified Code(s): J44.9 - Chronic obstructive pulmonary disease, unspecified Is this a current diagnosis for this admission?: Yes Plan: - Duoneb as needed - not on O2 - not in exacerbation - Plan Summary Summary: . - Time Time Spent with patient: 35 or more minutes Smoking Cessation Education: 3 to 10 minutes Medications reviewed and adjusted accordingly: Yes Anticipated Discharge Disposition: Home, Self Care Anticipated Discharge Timeframe: to be determined - Inpatient Certification Based on my medical assessment, after consideration of the patient's comorbidities, presenting symptoms, or acuity I expect that the services needed warrant INPATIENT care.: Yes I certify that my determination is in accordance with my understanding of Medicare's requirements for reasonable and necessary INPATIENT services [42 CFR 412.3e].: Yes Medical Necessity: Need For IV Fluids Post Hospital Care: 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
[2020-08-07 19:05] LABS: ALBUMIN 2.5 g/dL (3.5-5.0); ALKALINE PHOSPHATASE 73 U/L (38-126); ANION GAP 9 (5-19); ASPARTATE AMINO TRANSFERASE 13 U/L (17-59); BILIRUBIN,DIRECT 0.1 mg/dL (0.0-0.4); BILIRUBIN,TOTAL 0.2 mg/dL (0.2-1.3); BLOOD UREA NITROGEN 5 mg/dL (7-20); CALCIUM 7.7 mg/dL (8.4-10.2); CARBON DIOXIDE 21 mmol/L (22-30); CHLORIDE 102 mmol/L (98-107); GLUCOSE 210 mg/dL (75-110); POTASSIUM 3.4 mmol/L (3.6-5.0); TOTAL PROTEIN 4.8 g/dL (6.3-8.2)
--- NOTE | 2020-08-07 20:03 | XCELERA REPORT ---
[address] [address] Transthoracic Echocardiogram Report Name: DONAVAN OSBORNE Age: 50 yrs Gender: Male : 1970 Patient Status: Inpatient Patient Location: [address] [place] [address] Study Date: 08/07/2020 06:25 PM History: CHF Height: 68 in Weight: 157 lb BSA: 1.8 m2 Procedure: A complete two-dimensional transthoracic echocardiogram was performed (2D, M-mode, spectral and color flow Doppler). The study was technically difficult with many images being suboptimal in quality. Reason For Study: CHF, Acute onset bilateral lower extremity edema Previous Evaluation: No previous studies were available. History: CHF. Ordering Physician: SHILPA MOYA Performed By: Iris Britton Interpretation Summary Left ventricular systolic function is normal. The Ejection Fraction estimate is 55-60% There is a trace amount of mitral regurgitation There is a trace amount of tricuspid regurgitation Doppler findings do not suggest pulmonary hypertension. There is no aortic valve stenosis There is no pericardial effusion. MMode/2D Measurements & Calculations RVDd: 4.2 cm LVIDd: 5.0 cm FS: 31.3 % Ao root diam: 3.4 cm IVSd: 1.2 cm LVIDs: 3.4 cm EDV(Teich): 117.1 ml Ao root area: 8.9 cm2 LVPWd: 0.94 cm ESV(Teich): 48.1 ml LA dimension: 3.3 cm EF(Teich): 58.9 % Doppler Measurements & Calculations MV E max katt: MV P1/2t max katt: Ao V2 max: LV V1 max P.0 cm/sec 92.1 cm/sec 124.2 cm/sec 2.0 mmHg MV A max katt: MV P1/2t: 83.9 msec Ao max PG: LV V1 max: 84.7 cm/sec MVA(P1/2t): 2.6 cm2 6.2 mmHg 70.6 cm/sec MV E/A: 0.99 MV dec slope: 321.4 cm/sec2 MV dec time: 0.27 sec PA V2 max: PI end-d katt: TR max katt: MV P1/2t-pr_phl: 81.2 cm/sec 143.3 cm/sec 229.3 cm/sec 83.9 msec PA max PG: TR max P.6 mmHg 21.0 mmHg Left Ventricle The left ventricle is normal in size. There is borderline concentric left ventricular hypertrophy. Left ventricular systolic function is normal. The Ejection Fraction estimate is 55-60%. Doppler measurements suggest pseudonormalized left ventricular relaxation, which is associated with grade II/IV or mild to moderate diastolic dysfunction. Regional wall motion abnormalities cannot be excluded due to limited visualization. Right Ventricle The right ventricle is normal in size and function. Atria The right atrium is normal. The left atrium is borderline dilated. Mitral Valve The mitral valve is grossly normal. There is no mitral valve stenosis. There is a trace amount of mitral regurgitation. Aortic Valve The aortic valve is normal in structure and function. The aortic valve is trileaflet. The aortic valve opens well. There is no aortic valve stenosis. No aortic regurgitation is present. Tricuspid Valve The tricuspid valve is normal in structure and function. There is a trace amount of tricuspid regurgitation. Doppler findings do not suggest pulmonary hypertension. Pulmonic Valve The pulmonic valve is normal in structure and function. There is no pulmonic valvular stenosis. There is a trace or physiologic amount of pulmonic regurgitation. Great Vessels The aortic root is normal size. The inferior vena cava appeared normal and decreased > 50% with respiration (RAP 5-10 mmHg). Effusions There is no pericardial effusion. : SHILPA MOYA Anil
[2020-08-07] MEDS ORDERED: INSULIN GLARGINE,HUM.REC.ANLOG 1,000 UNIT/10 ML VIAL SUBCUT SCH (22:00)
[2020-08-07] MEDS: NORMAL SALINE 1000 ML 1,000 ML IV PRN (23:32)
[2020-08-08] MEDS: NORMAL SALINE 1000 ML 1,000 ML IV PRN ×3 (04:49→16:49)
[2020-08-08] MEDS: HEPARIN SOD (PORCINE) 5,000 UNIT/ML 1 ML VIAL SUBCUT SCH ×3 (05:02→22:16)
[2020-08-08 05:44] LABS: HEMATOCRIT 31.9 % (37.9-51.0); HEMOGLOBIN 10.9 g/dL (13.5-17.0); MEAN CORPUSCULAR HEMOGLOBIN 30.9 pg (27.0-33.4); MEAN CORPUSCULAR HGB CONC 34.2 g/dL (32.0-36.0); MEAN CORPUSCULAR VOLUME 90 fl (80-97); PLATELET COUNT 122 10^3/uL (150-450); RED BLOOD COUNT 3.54 10^6/uL (4.35-5.55); RED CELL DISTRIBUTION WIDTH 13.8 % (11.5-14.0)
[2020-08-08 05:59] LABS: ALBUMIN 2.1 g/dL (3.5-5.0); ALKALINE PHOSPHATASE 64 U/L (38-126); ANION GAP 7 (5-19); ASPARTATE AMINO TRANSFERASE 13 U/L (17-59); BILIRUBIN,DIRECT 0.1 mg/dL (0.0-0.4); BILIRUBIN,TOTAL 0.3 mg/dL (0.2-1.3); BLOOD UREA NITROGEN 4 mg/dL (7-20); CALCIUM 7.3 mg/dL (8.4-10.2); CARBON DIOXIDE 20 mmol/L (22-30); CHLORIDE 105 mmol/L (98-107); GLUCOSE 162 mg/dL (75-110); TOTAL PROTEIN 4.1 g/dL (6.3-8.2)
[2020-08-08 06:21] LABS: WHITE BLOOD COUNT 1.8 10^3/uL (4.0-10.5)
[2020-08-08] MEDS ORDERED: INFLUENZA QUAD (6MOS+) 2020-21 VAC 0.5 ML SYR IM ONE (08:00)
[2020-08-08] MEDS: METOCLOPRAMIDE HCL INJ/PF 10 MG/2 ML SDV IV SCH ×4 (09:09→22:08)
[2020-08-08] MEDS: FAMOTIDINE INJ/PF 20 MG/2 ML SDV IV SCH ×2 (09:10→22:07)
[2020-08-08] MEDS: DOCUSATE SODIUM 100 MG CAPSULE PO SCH ×2 (09:10→17:04)
[2020-08-08] MEDS: INSULIN LISPRO 100 UNIT/ML 3 ML VIAL SUBCUT SCH ×6 (09:10→22:17)
[2020-08-08] MEDS ORDERED: POTASSIUM CHLORIDE 10 MEQ TABLET.ER PO ONE (10:00)
[2020-08-08] MEDS: POTASSI CL 20 MEQ/50 ML RIDER 20 MEQ/50 ML RTUPB IV SCH ×2 (10:08→12:23)
[2020-08-08 13:36] LABS: PATH REVIEW PATHOLOGIST REVIEWED
[2020-08-08] MEDS ORDERED: HUM INSULIN NPH/REG INSULIN HM 100 UNIT/1 ML 3 ML SUBCUT SCH (16:00)
--- NOTE | 2020-08-08 16:34 | PDOC PROGRESS REPORT ---
Subjective Progress Note for:: 08/08/20 Subjective:: The patient is a 50-year-old male with a past medical history of COPD, arthritis, alcohol dependency, tobacco dependency, who was admitted 08/06/20 with DKA and new diagnosis of diabetes mellitus. Patient was seen on morning rounds. He is found resting in bed, comfortably, on room air. He reports that he is feeling much better. He was able to eat all of his breakfast this morning and has improved energy level. He does have many appropriate questions regarding his new diagnosis and insulin management. He informs me that he is uninsured and asks that his medications he is cost effective is possible. He denies fever, chills, chest pain, palpitations, dyspnea, orthopnea, cough, abdominal pain, nausea vomiting diarrhea, polyuria, polydipsia. No concerns per nursing. Reason For Visit: DIABETIC KETOACIDOSIS Physical Exam Vital Signs: Temp Pulse Resp BP Pulse Ox 97.8 F 75 18 97/58 L 99 08/08/20 11:00 08/08/20 11:00 08/08/20 11:00 08/08/20 11:00 08/08/20 11:00 Intake & Output 08/07/20 08/08/20 08/09/20 06:59 06:59 06:59 Intake Total 1277 2919 1333 Output Total 200 3200 900 Balance 1077 -281 433 Weight 71.5 kg 76.6 kg 76.6 kg General appearance: PRESENT: no acute distress, cooperative, thin, well- developed, well-nourished Head exam: PRESENT: atraumatic, normocephalic Eye exam: PRESENT: conjunctiva pink, EOMI, PERRLA. ABSENT: scleral icterus Mouth exam: PRESENT: moist, tongue midline Teeth exam: PRESENT: poor dentation Respiratory exam: PRESENT: clear to auscultation dariana, symmetrical, unlabored. ABSENT: rales, rhonchi, wheezes Cardiovascular exam: PRESENT: RRR, +S1, +S2. ABSENT: diastolic murmur, rubs, systolic murmur Vascular exam: PRESENT: normal capillary refill Extremities exam: PRESENT: full ROM. ABSENT: calf tenderness, clubbing, pedal edema Musculoskeletal exam: PRESENT: ambulatory Neurological exam: PRESENT: alert, awake, oriented to person, oriented to place, oriented to time, oriented to situation, CN II-XII grossly intact. ABSENT: motor sensory deficit Psychiatric exam: PRESENT: appropriate affect, normal mood. ABSENT: homicidal ideation, suicidal ideation Skin exam: PRESENT: dry, intact, warm. ABSENT: cyanosis, rash Results Laboratory Results: 08/08/20 04:44 08/08/20 04:44 08/07/20 08/08/20 08/08/20 18:02 04:44 04:44 WBC 1.8 L D RBC 3.54 L Hgb 10.9 L Hct 31.9 L MCV 90 MCH 30.9 MCHC 34.2 RDW 13.8 Plt Count 122 L Sodium 132.2 L 132.4 L Potassium 3.4 L 3.0 L* Chloride 102 105 Carbon Dioxide 21 L 20 L Anion Gap 9 7 BUN 5 L 4 L Creatinine 0.57 0.36 L Est GFR ( Amer) > 60 > 60 Glucose 210 H 162 H Calcium 7.7 L 7.3 L Magnesium 1.5 L Total Bilirubin 0.2 0.3 AST 13 L 13 L Alkaline Phosphatase 73 64 Total Protein 4.8 L 4.1 L Albumin 2.5 L 2.1 L 08/07/20 17:12 NT-Pro-B Natriuret Pep 199 H Impressions: Chest X-Ray 08/06/20 22:07 IMPRESSION: Mild asymmetric increased opacity in the periphery of the left midlung zone which could represent pneumonia superimposed on underlying scarring. Clinical correlation and attention on short-term follow-up chest x-ray recommended. copyright 2010 [employer]- All Rights Reserved Assessment and Plan - Diagnosis (1) DKA (diabetic ketoacidoses) Qualifiers: Diabetes mellitus type: type 2 Diabetes mellitus complication detail: without coma Qualified Code(s): E11.10 - Type 2 diabetes mellitus with ketoacidosis without coma Is this a current diagnosis for this admission?: Yes Plan: Resolved. Managed with generous IV fluids and insulin drip. anion gap is closed and Bicarb improved to 20. He has now been transitioned to subcutaneous insulin. Tolerating a consistent carb diet. Monitoring electrolytes closely and continuing to replace as indicated. Insulin adjusted to 70/30 today to better facilitate patient's ability to afford medications (uninsured status); will require some additional dose adjustments prior to discharge. 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 Patient is placed on a consistent carb diet. Accu-Cheks before meals and at bedtime with Humalog for sliding scale coverage. Unfortunately, patient is uninsured and financially limited. Therefore have discontinued mealtime Humalog and nighttime Lantus. Will start on 70/30 and optimize dosing prior to discharge. Hypoglycemia protocol in place. Registered dietitian and public health educator consulted. (3) Hypokalemia Is this a current diagnosis for this admission?: Yes Plan: - K 2.9>3.4>3.8>3.0 - 2/2 acidosis from DKA and insulin Replaced via IV and PO Magnesium replaced today. BMP daily (4) Hyponatremia Is this a current diagnosis for this admission?: Yes Plan: Slight improvements; Na 129.9 -> NA 132.4 - mild hyponatremia - will monitor for now (5) Tobacco abuse Is this a current diagnosis for this admission?: Yes Plan: - counseling done - nicotine patch (6) Chronic obstructive pulmonary disease (COPD) Qualifiers: COPD type: unspecified COPD Qualified Code(s): J44.9 - Chronic obstructive pulmonary disease, unspecified Is this a current diagnosis for this admission?: Yes Plan: Stable and without exacerbation at this time. Duoneb as needed Supplemental O2 as needed. No indicationsfor steroid or antibiotic therapy. (7) Alcohol use disorder Is this a current diagnosis for this admission?: Yes Plan: According to him his last drink was 1 month ago but according to his he had been drinking consistently up until a few days ago CIWA score q4 Ativan IV PRN according to CIWA score; none needed thus far. Daily thiamine and folic acid supplementation. (8) DVT prophylaxis Is this a current diagnosis for this admission?: Yes Plan: - sq heparin (9) Hypomagnesemia Is this a current diagnosis for this admission?: Yes Plan: IV replacement today (10) Bilateral lower extremity edema Is this a current diagnosis for this admission?: Yes Plan: Significantly improved; trace bilaterally today No history of CHF, proBNP 199 Echocardiogram reveals LVEF 55 to 60% with grade 2 LV diastolic dysfunction. Likely a combination of hypoalbuminemia from poor oral intake due to alcoholism Albumin 2.1 TOMMIE hose and elevation. Encourage adequate nutrition. - Time Time Spent with patient: 35 or more minutes Medications reviewed and adjusted accordingly: Yes Anticipated Discharge Disposition: Home, Self Care Anticipated Discharge Timeframe: within 24 hours
[2020-08-08] MEDS: MAGNESIUM SULFATE/D5W 1 GM/100 ML RTUPB IV SCH ×2 (16:48→18:48)
[2020-08-08] MEDS ORDERED: METFORMIN HCL 850 MG TABLET PO SCH (18:00)
[2020-08-09] MEDS: NORMAL SALINE 1000 ML 1,000 ML IV PRN (01:16)
[2020-08-09] MEDS: HEPARIN SOD (PORCINE) 5,000 UNIT/ML 1 ML VIAL SUBCUT SCH (05:03)
[2020-08-09 05:56] LABS: HEMATOCRIT 34.1 % (37.9-51.0); HEMOGLOBIN 11.5 g/dL (13.5-17.0); MEAN CORPUSCULAR HEMOGLOBIN 30.7 pg (27.0-33.4); MEAN CORPUSCULAR HGB CONC 33.7 g/dL (32.0-36.0); MEAN CORPUSCULAR VOLUME 91 fl (80-97); PLATELET COUNT 131 10^3/uL (150-450); RED BLOOD COUNT 3.74 10^6/uL (4.35-5.55); WHITE BLOOD COUNT 2.4 10^3/uL (4.0-10.5)
[2020-08-09 06:22] LABS: ALBUMIN 2.2 g/dL (3.5-5.0); ALKALINE PHOSPHATASE 72 U/L (38-126); ASPARTATE AMINO TRANSFERASE 20 U/L (17-59); BILIRUBIN,DIRECT 0.1 mg/dL (0.0-0.4); BILIRUBIN,TOTAL 0.2 mg/dL (0.2-1.3); BLOOD UREA NITROGEN 3 mg/dL (7-20); CALCIUM 7.7 mg/dL (8.4-10.2); GLUCOSE 144 mg/dL (75-110); POTASSIUM 3.5 mmol/L (3.6-5.0); TOTAL PROTEIN 4.5 g/dL (6.3-8.2)
[2020-08-09 06:27] LABS: ANION GAP 6 (5-19); CARBON DIOXIDE 23 mmol/L (22-30); CHLORIDE 107 mmol/L (98-107)
[2020-08-09] MEDS ORDERED: HUM INSULIN NPH/REG INSULIN HM 100 UNIT/1 ML 3 ML SUBCUT SCH (08:00)
[2020-08-09] MEDS: INSULIN LISPRO 100 UNIT/ML 3 ML VIAL SUBCUT SCH ×2 (09:22→12:04)
[2020-08-09] MEDS: FAMOTIDINE INJ/PF 20 MG/2 ML SDV IV SCH (09:23)
[2020-08-09] MEDS: METOCLOPRAMIDE HCL INJ/PF 10 MG/2 ML SDV IV SCH ×2 (09:26→12:05)
[2020-08-09] MEDS: DOCUSATE SODIUM 100 MG CAPSULE PO SCH (09:30)
[2020-08-09] MEDS ORDERED: FOLIC ACID 1 MG TABLET PO SCH (10:00)
[2020-08-09] MEDS ORDERED: THIAMINE HCL 100 MG TABLET PO SCH (10:00)
[2020-08-09 14:06] VITALS: BP 129/81
--- NOTE | 2020-08-09 18:15 | PDOC DISCHARGE SUMMARY ---
Impression - Admit/DC Date/PCP Admission Date/Primary Care Provider: 08/06/20 23:45 Discharge Date: 08/09/20 - Discharge Diagnosis (1) DKA (diabetic ketoacidoses) Is this a current diagnosis for this admission?: Yes (2) DM type 2 (diabetes mellitus, type 2) Is this a current diagnosis for this admission?: Yes (3) Hypokalemia Is this a current diagnosis for this admission?: Yes (4) Hyponatremia Is this a current diagnosis for this admission?: Yes (5) Tobacco abuse Is this a current diagnosis for this admission?: Yes (6) Chronic obstructive pulmonary disease (COPD) Is this a current diagnosis for this admission?: Yes (7) Alcohol use disorder Is this a current diagnosis for this admission?: Yes (8) DVT prophylaxis Is this a current diagnosis for this admission?: Yes (9) Hypomagnesemia Is this a current diagnosis for this admission?: Yes (10) Bilateral lower extremity edema Is this a current diagnosis for this admission?: Yes - Additional Information Resuscitation Status: Full Code Discharge Diet: Diabetic Discharge Activity: Activity As Tolerated, Balance Activity w/Rest, Keep Legs Elevated, Slowly Increase Activity Referrals: [facility] [Provider Group] - 08/14/20 9:00 am (Dr. Cox will call you [facility] at 9:00 a.m.) Prescriptions: Blood-Glucose Meter [Blood Glucose Meter] 1 unit MC ASDIR PRN #1 unit PRN Reason: Blood Sugar Diagnostic [Blood Glucose Test] 1 each MC BID #60 strip Lancets [Blood Lancets] 1 each MC BID #60 each Folic Acid [Folvite 1 mg Tablet] 1 mg PO DAILY #90 tablet Hum Insulin NPH/Reg Insulin Hm [Insulin Inj 70-30 (100 Unit/1 ml) 3 ml Vial] See Protocol SUBCUT ASDIR PRN #10 ml PRN Reason: Nicotine [Nicoderm 21 mg/24 Hr Transderm Patch] 1 each TD DAILYP PRN #30 patch.td24 PRN Reason: Thiamine HCl [Thiamine 100 mg Tablet] 100 mg PO DAILY #90 tablet Home Medications: Acetaminophen [Tylenol 650 mg Supp] 650 mg MD Q4HP PRN supp.rect 08/09/20 Blood Sugar Diagnostic [Blood Glucose Test] 1 each MC BID #60 strip 08/09/20 Blood-Glucose Meter [Blood Glucose Meter] 1 unit MC ASDIR PRN #1 unit 08/09/20 Folic Acid [Folvite 1 mg Tablet] 1 mg PO DAILY #90 tablet 08/09/20 Hum Insulin NPH/Reg Insulin Hm [Insulin Inj 70-30 (100 Unit/1 ml) 3 ml Vial] See Protocol SUBCUT ASDIR PRN #10 ml 08/09/20 Lancets [Blood Lancets] 1 each MC BID #60 each 08/09/20 Nicotine [Nicoderm 21 mg/24 Hr Transderm Patch] 1 each TD DAILYP PRN #30 patch.td24 08/09/20 Thiamine HCl [Thiamine 100 mg Tablet] 100 mg PO DAILY #90 tablet 08/09/20 History of Present Illiness History of Present Illness: Per H&P by Dr. Duncan: DONAVAN OSBORNE is a 50 year old male who presents to the emergency room with a 2-week history of dizziness. He admits developing orthostatic dizziness accompanied by nausea and associated with polyuria, weight loss, malaise and lower extremity edema. All of his symptoms have gradually increased in severity over the course of 2 weeks with his dizziness becoming severe today. He denies other associated or accompanying signs and symptoms. He denies prior similar episodes. He has not identified any aggravating or ameliorating factors for his orthostatic dizziness. In the emergency room he was found to have a blood sugar of 446, a potassium of 3.9, a venous blood gas pH of 7.22, a CO2 of 11 and ketonuria. He was started on an insulin infusion in the ER and subsequently admitted to the hospital for further evaluation and treatment. Hospital Course Hospital Course: (1) DKA (diabetic ketoacidoses) Resolved. Managed with generous IV fluids and insulin drip. Anion gap is closed and acidosis has resolved. He has now been transitioned to subcutaneous insulin. Tolerating a consistent carb diet. Insulin adjusted to 70/30 to better facilitate patient's ability to afford medications (uninsured status). Patient was educated on the importance of dietary and medication compliance. (2) DM type 2 (diabetes mellitus, type 2) A1c 12.9% This is a new diagnosis. Patient is placed on a consistent carb diet. While admitted, he was maintained with Accu-Cheks before meals and at bedtime with Humalog for sliding scale coverage. Unfortunately, patient is uninsured and financially limited. Therefore, have discontinued mealtime Humalog and nighttime Lantus. Started on 70/30 and optimize dosing prior to discharge; now with adequate glucose control. Registered dietitian and life skills educator consulted. (3) Hypokalemia Resolved. 2/2 acidosis from DKA and insulin Replaced via IV and PO (4) Hyponatremia Improved; Na 129.9-> 132.4-> 135.8 Not clinically relevant. (5) Tobacco abuse Counseling done Nicotine patch was available and prescribed at discharge. (6) Chronic obstructive pulmonary disease (COPD) Stable and without exacerbation. Supplemental O2 and Duonebs were available; none needed. No indications for steroid or antibiotic therapy. (7) Alcohol use disorder According to patient, his last drink was 1 month ago but according to his he had been drinking consistently up until a few days ago CIWA score q4 Ativan IV PRN according to CIWA score; none needed during admission Daily thiamine and folic acid supplementation provided. Advised on the importances of decreasing alcohol intake. (8) DVT prophylaxis Received sq heparin Physical Exam Vital Signs: Temp Pulse Resp BP Pulse Ox 97.7 F 74 16 129/81 H 100 08/09/20 13:57 08/09/20 13:57 08/09/20 13:57 08/09/20 13:57 08/09/20 13:57 Intake & Output 08/08/20 08/09/20 08/10/20 06:59 06:59 06:59 Intake Total 2919 3217 482 Output Total 3200 1200 Balance -281 2016 482 Weight 76.6 kg 79.6 kg General appearance: PRESENT: no acute distress, cooperative, thin, well- developed, well-nourished Head exam: PRESENT: atraumatic, normocephalic Eye exam: PRESENT: conjunctiva pink, EOMI, PERRLA. ABSENT: scleral icterus Mouth exam: PRESENT: moist, tongue midline Teeth exam: PRESENT: poor dentation Respiratory exam: PRESENT: clear to auscultation dariana, symmetrical, unlabored. ABSENT: rales, rhonchi, wheezes Cardiovascular exam: PRESENT: RRR. ABSENT: diastolic murmur, rubs, systolic murmur Vascular exam: PRESENT: normal capillary refill GI/Abdominal exam: PRESENT: normal bowel sounds, soft. ABSENT: distended, guarding, mass, organolmegaly, rebound, tenderness Rectal exam: PRESENT: deferred Extremities exam: PRESENT: full ROM. ABSENT: calf tenderness, clubbing, pedal edema Musculoskeletal exam: PRESENT: ambulatory Neurological exam: PRESENT: alert, awake, oriented to person, oriented to place, oriented to time, oriented to situation, CN II-XII grossly intact. ABSENT: motor sensory deficit Psychiatric exam: PRESENT: appropriate affect, normal mood. ABSENT: homicidal ideation, suicidal ideation Skin exam: PRESENT: dry, intact, warm. ABSENT: cyanosis, rash Results Laboratory Results: WBC 2.4 10^3/uL (4.0-10.5) L 08/09/20 05:33 RBC 3.74 10^6/uL (4.35-5.55) L 08/09/20 05:33 Hgb 11.5 g/dL (13.5-17.0) L 08/09/20 05:33 Hct 34.1 % (37.9-51.0) L 08/09/20 05:33 MCV 91 fl (80-97) 08/09/20 05:33 MCH 30.7 pg (27.0-33.4) 08/09/20 05:33 MCHC 33.7 g/dL (32.0-36.0) 08/09/20 05:33 RDW 14.0 % (11.5-14.0) 08/09/20 05:33 Plt Count 131 10^3/uL (150-450) L 08/09/20 05:33 Lymph % (Auto) 19.2 % (13-45) 08/06/20 21:23 [place] % (Auto) 14.9 % (3-13) H 08/06/20 21:23 Eos % (Auto) 1.0 % (0-6) 08/06/20 21:23 Baso % (Auto) 0.7 % (0-2) 08/06/20 21:23 Absolute Neuts (auto) 3.2 10^3/uL (1.7-8.2) 08/06/20 21:23 Absolute Lymphs (auto) 0.9 10^3/uL (0.5-4.7) 08/06/20 21:23 Absolute Monos (auto) 0.7 10^3/uL (0.1-1.4) 08/06/20 21:23 Absolute Eos (auto) 0.1 10^3/uL (0.0-0.6) 08/06/20 21:23 Absolute Basos (auto) 0.0 10^3/uL (0.0-0.2) 08/06/20 21:23 Seg Neutrophils % 64.2 % (42-78) 08/06/20 21:23 VBG pH 7.34 (7.30-7.42) 08/07/20 06:21 VBG pCO2 44.7 mmHg (35-63) 08/07/20 06:21 VBG HCO3 23.6 mmol/L (20-32) 08/07/20 06:21 VBG Base Excess -2.3 mmol/L 08/07/20 06:21 Sodium 135.8 mmol/L (137-145) L 08/09/20 05:33 Potassium 3.5 mmol/L (3.6-5.0) L 08/09/20 05:33 Chloride 107 mmol/L (98-107) 08/09/20 05:33 Carbon Dioxide 23 mmol/L (22-30) 08/09/20 05:33 Anion Gap 6 (5-19) 08/09/20 05:33 BUN 3 mg/dL (7-20) L 08/09/20 05:33 Creatinine 0.39 mg/dL (0.52-1.25) L 08/09/20 05:33 Est GFR ( Amer) > 60 (>60) 08/09/20 05:33 Est GFR (MDRD) Non-Af > 60 (>60) 08/09/20 05:33 Glucose 144 mg/dL (75-110) H 08/09/20 05:33 POC Glucose 167 mg/dL (70-110) H 08/09/20 11:05 Hemoglobin A1c % 12.9 % (4.7-6.0) H 08/08/20 04:44 Calcium 7.7 mg/dL (8.4-10.2) L 08/09/20 05:33 Magnesium 1.5 mg/dL (1.6-2.3) L 08/08/20 04:44 Total Bilirubin 0.2 mg/dL (0.2-1.3) 08/09/20 05:33 Direct Bilirubin 0.1 mg/dL (0.0-0.4) 08/09/20 05:33 Neonat Total Bilirubin Not Reportable 08/09/20 05:33 Neonat Direct Bilirubin Not Reportable 08/09/20 05:33 Neonat Indirect Bili Not Reportable 08/09/20 05:33 AST 20 U/L (17-59) 08/09/20 05:33 ALT 8 U/L (<50) 08/09/20 05:33 Alkaline Phosphatase 72 U/L (38-126) 08/09/20 05:33 NT-Pro-B Natriuret Pep 199 pg/mL (<125) H 08/07/20 17:12 Total Protein 4.5 g/dL (6.3-8.2) L 08/09/20 05:33 Albumin 2.2 g/dL (3.5-5.0) L 08/09/20 05:33 Triglycerides 69 mg/dL (<150) 08/07/20 06:21 Cholesterol 78.12 mg/dL (0-200) 08/07/20 06:21 LDL Cholesterol Direct < 30 mg/dL (<100) 08/07/20 06:21 VLDL Cholesterol 14.0 mg/dL (10-31) 08/07/20 06:21 HDL Cholesterol 40 mg/dL (>40) 08/07/20 06:21 Lipase 47.4 U/L (23-300) 08/06/20 21:23 TSH 2.64 uIU/mL (0.47-4.68) 08/06/20 21:23 Urine Color STRAW 08/06/20 21:37 Urine Appearance CLEAR 08/06/20 21:37 Urine pH 6.0 (5.0-9.0) 08/06/20 21:37 Ur Specific [place] 1.026 08/06/20 21:37 Urine Protein NEGATIVE mg/dL (NEGATIVE) 08/06/20 21:37 Urine Glucose (UA) >=500 mg/dL (NEGATIVE) H 08/06/20 21:37 Urine Ketones 80 mg/dL (NEGATIVE) H 08/06/20 21:37 Urine Blood NEGATIVE (NEGATIVE) 08/06/20 21:37 Urine Nitrite NEGATIVE (NEGATIVE) 08/06/20 21:37 Urine Bilirubin NEGATIVE (NEGATIVE) 08/06/20 21:37 Urine Urobilinogen NEGATIVE mg/dL (<2.0) 08/06/20 21:37 Ur Leukocyte Esterase NEGATIVE (NEGATIVE) 08/06/20 21:37 Urine WBC (Auto) 0 /HPF 08/06/20 21:37 Urine RBC (Auto) 0 /HPF 08/06/20 21:37 Squamous Epi Cells Auto <1 /HPF 08/06/20 21:37 Urine Ascorbic Acid NEGATIVE (NEGATIVE) 08/06/20 21:37 Slides for Path Review PATHOLOGIST REVIEWED 08/08/20 04:44 08/07/20 17:12 NT-Pro-B Natriuret Pep 199 H Impressions: Chest X-Ray 08/06/20 22:07 IMPRESSION: Mild asymmetric increased opacity in the periphery of the left midlung zone which could represent pneumonia superimposed on underlying scarring. Clinical correlation and attention on short-term follow-up chest x-ray recommended. copyright 2011 [employer]- All Rights Reserved Plan Plan of Treatment: She is discharged home in stable condition. He is advised follow-up with his primary care provider within 1 week. He is instructed to continue a consistent carb diet. He is advised to take his medications as prescribed. He has met with the registered dietitian and patient educator. He is encouraged to return to the emergency department, as needed, for concerning symptoms. Time Spent: Greater than 30 Minutes Stroke Is this a Stroke Patient?: No Acute Heart Failure Is this a Heart Failure Patient?: No
== END 2020-08-09 14:45 | disposition home or self-care (01) | DRG 638 ==
LOC: ER 21:14 → EH 23:45 → 3W 08-07 01:30
PROVIDERS: ADMIT Emergency Medicine; ATTEND Registered Nurse
DX: E11.10 Type 2 diabetes mellitus with ketoacidosis without coma (principal); E87.1 Hypo-osmolality and hyponatremia; E87.6 Hypokalemia; F17.200 Nicotine dependence, unspecified, uncomplicated; J44.9 Chronic obstructive pulmonary disease, unspecified; E83.42 Hypomagnesemia; K44.9 Diaphragmatic hernia without obstruction or gangrene; M19.90 Unspecified osteoarthritis, unspecified site; F10.20 Alcohol dependence, uncomplicated; K21.00 Gastro-esophageal reflux disease with esophagitis, without bleeding; D64.9 Anemia, unspecified; R60.9 Edema, unspecified; Z79.82 Long term (current) use of aspirin; Z79.4 Long term (current) use of insulin; Z79.899 Other long term (current) drug therapy
CPT/HCPCS: 36415; 71045; 80048; 80053; 80061; 81001; 82803; 82962; 83036; 83690; 83735; 83880; 84443; 85025; 85027; 87070; 93005; 93010; 93306; 96360; 99285; J1644; J1815; J2765; J3475; J3480; J3490; J7030; J7060; J7120; S0028

== ENCOUNTER 2020-08-11 10:49 | Emergency (ER) | payer SELFPAY ==
--- NOTE | 2020-08-11 11:35 | ER Document Report ---
ED Medical Screen (RME) - General Chief Complaint: Leg Swelling Stated Complaint: LEG SWELLING Time Seen by Provider: 08/11/20 11:27 Mode of Arrival: Medic Information source: Patient Notes: 50-year-old male presented to ED for high sugar swelling from his toes to his mid abdomen. He states he was in the hospital from Friday until Friday. He was newly diagnosed diabetic on Friday. He was in DKA at that time. He states his legs were swollen at when he was discharged but now he is swollen up chcf up his abdomen. He does have edema up to his abdomen. He came by EMS EMS stated his sugar was 451. Patient states he was discharged home with prescriptions for all of his medications but there was no insulin at the pharmacy for him he states all of his medicines and equipment were there but no insulin. He states he tried to call the doctor several times and gets no answer. He states he does not have a primary care so he had to come back him because her sugar was getting high. Have ordered DKA work-up and IV fluids. I have greeted and performed a rapid initial assessment of this patient. A comprehensive ED assessment and evaluation of the patient, analysis of test r esults and completion of medical decision making process will be conducted by an additional ED providers. TRAVEL OUTSIDE OF THE [place] IN LAST 30 DAYS: No - Related Data Allergies/Adverse Reactions: No Known Allergies Allergy (Verified 03/19/15 17:25) Past Medical History - Past Medical History Cardiac Medical History: Denies: Hx Atrial Fibrillation, Hx Congestive Heart Failure, Hx Coronary Artery Disease, Hx DVT, Hx Hypercholesterolemia, Hx Hypertension, Hx Pulmonary Embolism Pulmonary Medical History: Reports: Hx Asthma, Hx Bronchitis, Hx COPD, Hx Pneumonia Denies: Hx Tuberculosis Neurological Medical History: Denies: Hx Seizures Endocrine Medical History: Denies: Hx Diabetes Mellitus Type 1, Hx Diabetes Mellitus Type 2, Hx Hyperthyroidism, Hx Hypothyroidism GI Medical History: Reports: Hx Gastroesophageal Reflux Disease, Hx Hiatal Hernia, Hx Pancreatitis. Denies: Hx Cirrhosis, Hx Hepatitis Musculoskeltal Medical History: Reports Hx Arthritis, Denies Hx Gout Skin Medical History: Denies Hx Eczema, Denies Hx Psoriasis Psychiatric Medical History: Denies: Hx Depression Infectious Medical History: Denies: Hx Hepatitis Past Surgical History: Reports: Hx Abdominal Surgery - Repair of pancreatic aneurysm., Hx Orthopedic Surgery - rt knee, Other - Pancreatic pseudocyst drainage. Denies: Hx Pacemaker - Immunizations Hx Diphtheria, Pertussis, Tetanus Vaccination: No Physical Exam - Vital signs Vitals: Temp Pulse Resp BP Pulse Ox 98.0 F 73 16 111/67 100 08/11/20 10:55 08/11/20 10:55 08/11/20 10:55 08/11/20 10:55 08/11/20 10:55 Course - Vital Signs Vital signs: Temp Pulse Resp BP Pulse Ox 98.0 F 73 16 111/67 100 08/11/20 10:55 08/11/20 10:55 08/11/20 10:55 08/11/20 10:55 08/11/20 10:55
[2020-08-11] MEDS: NORMAL SALINE 1000 ML 1,000 ML IV ONE ×2 (11:50→11:59)
[2020-08-11 13:54] LABS: APPEARANCE,URINE CLEAR; BILIRUBIN,URINE NEGATIVE (NEGATIVE); COLOR,URINE STRAW; GLUCOSE, URINE >=500 mg/dL (NEGATIVE); KETONES,URINE NEGATIVE (NEGATIVE); LEUKOCYTE ESTERASE,URINE NEGATIVE (NEGATIVE); NITRITE,URINE NEGATIVE (NEGATIVE); PROTEIN,URINE NEGATIVE (NEGATIVE); URINE SPECIFIC GRAVITY 1.026; UROBILINOGEN,URINE NEGATIVE mg/dL (<2.0)
[2020-08-11 14:12] LABS: ABSOLUTE BASOPHILS # (AUTO) 0.1 10^3/uL (0.0-0.2); ABSOLUTE EOSINOPHILS # (AUTO) 0.1 10^3/uL (0.0-0.6); ABSOLUTE LYMPHOCYTES (AUTO) 1.1 10^3/uL (0.5-4.7); ABSOLUTE MONOCYTES (AUTO) 0.4 10^3/uL (0.1-1.4); ABSOLUTE NEUT (AUTO) 1.3 10^3/uL (1.7-8.2); BASOPHILS % (AUTO) 1.9 % (0-2); EOSINOPHILS % (AUTO) 1.9 % (0-6); HEMATOCRIT 32.6 % (37.9-51.0); HEMOGLOBIN 11.2 g/dL (13.5-17.0); LYMPHOCYTES % (AUTO) 38.8 % (13-45); MEAN CORPUSCULAR HEMOGLOBIN 31.1 pg (27.0-33.4); MEAN CORPUSCULAR HGB CONC 34.3 g/dL (32.0-36.0); MEAN CORPUSCULAR VOLUME 91 fl (80-97); MONOCYTES % (AUTO) 12.4 % (3-13); PLATELET COUNT 150 10^3/uL (150-450); RED BLOOD COUNT 3.59 10^6/uL (4.35-5.55); TOTAL CELLS COUNTED % (AUTO) 100 %; WHITE BLOOD COUNT 2.9 10^3/uL (4.0-10.5)
[2020-08-11 14:13] LABS: VENOUS BLOOD BASE EXCESS 2.5 mmol/L; VENOUS BLOOD HCO3 28.6 mmol/L (20-32); VENOUS BLOOD PCO2 50.5 mmHg (35-63); VENOUS BLOOD PH 7.37 (7.30-7.42)
[2020-08-11 14:49] LABS: ALBUMIN 2.4 g/dL (3.5-5.0); ALKALINE PHOSPHATASE 87 U/L (38-126); ASPARTATE AMINO TRANSFERASE 16 U/L (17-59); BILIRUBIN,DIRECT 0.1 mg/dL (0.0-0.4); BILIRUBIN,TOTAL 0.3 mg/dL (0.2-1.3); BLOOD UREA NITROGEN 2 mg/dL (7-20); CALCIUM 7.6 mg/dL (8.4-10.2); CREATINE KINASE 37 U/L (55-170); GLUCOSE 290 mg/dL (75-110); POTASSIUM 3.7 mmol/L (3.6-5.0); TOTAL PROTEIN 4.6 g/dL (6.3-8.2)
--- NOTE | 2020-08-11 14:51 | EKG REPORT ---
SEVERITY:- NORMAL ECG - SINUS RHYTHM : Confirmed by: Christiano Pgae MD 11-Aug-2020 14:49:59
[2020-08-11 15:02] LABS: CARBON DIOXIDE 27 mmol/L (22-30); CHLORIDE 100 mmol/L (98-107)
[2020-08-11 15:10] LABS: ANION GAP 4 (5-19)
--- NOTE | 2020-08-11 15:10 | ER Document Report ---
ED General - General Chief Complaint: Edema Stated Complaint: LEG SWELLING Time Seen by Provider: 08/11/20 11:27 Primary Care Provider: [facility] [Provider Group] - 08/14/20 (as scheduled for PCP follow up) Mode of Arrival: Medic TRAVEL OUTSIDE OF THE [place] IN LAST 30 DAYS: No - HPI Notes: 50-year-old male with past medical history pertinent for diabetes to the emergency department with complaints of bilateral leg swelling that is gotten worse since he was discharged from the hospital yesterday. He states that he was admitted to the hospital Friday evening and then discharged yesterday. He was found to to have new onset diabetes and was in DKA. He also has bilateral leg swelling. Apparently has a history of alcohol abuse. He states he has not had alcohol in a long time. He states that when he got home yesterday he went t o go slat pickler his medicines but he did not have his insulin or his thiamine. He states that since then his legs have been getting more more swollen. He did have an echo while he was inpatient that did not show any heart failure or pulmonary hypertension. He had improvement of his leg swelling while he was in the hospital and only had trace edema yesterday when he was discharged. He states the edema has come back a lot worse and he has swelling all the way up into his abdomen. He denies any chest pain. He states that he has some shortness of breath when he exerts himself but that is been ongoing for some time. He has been a smoker for many years of his life and he smokes pot approximately a pack a day. He has not supposed to see primary care until next Friday. - Related Data Allergies/Adverse Reactions: No Known Allergies Allergy (Verified 03/19/15 17:25) Past Medical History - General Information source: Patient - Social History Smoking Status: Current Every Day Smoker Frequency of alcohol use: History of heavy alcohol abuse Drug Abuse: None Family History: Reviewed & Not Pertinent, Other - Muscular dystrophy, CHF - Past Medical History Cardiac Medical History: Denies: Hx Atrial Fibrillation, Hx Congestive Heart Failure, Hx Coronary Artery Disease, Hx DVT, Hx Hypercholesterolemia, Hx Hypertension, Hx Pulmonary Embolism Pulmonary Medical History: Reports: Hx Asthma, Hx Bronchitis, Hx COPD, Hx Pneumonia Denies: Hx Tuberculosis Neurological Medical History: Denies: Hx Seizures Endocrine Medical History: Denies: Hx Diabetes Mellitus Type 1, Hx Diabetes Mellitus Type 2, Hx Hyperthyroidism, Hx Hypothyroidism GI Medical History: Reports: Hx Gastroesophageal Reflux Disease, Hx Hiatal Hernia, Hx Pancreatitis. Denies: Hx Cirrhosis, Hx Hepatitis Musculoskeletal Medical History: Reports Hx Arthritis, Denies Hx Gout Skin Medical History: Denies Hx Eczema, Denies Hx Psoriasis Psychiatric Medical History: Denies: Hx Depression Infectious Medical History: Denies: Hx Hepatitis Past Surgical History: Reports: Hx Abdominal Surgery - Repair of pancreatic aneurysm., Hx Orthopedic Surgery - rt knee, Other - Pancreatic pseudocyst drainage. Denies: Hx Pacemaker - Immunizations Hx Diphtheria, Pertussis, Tetanus Vaccination: No Review of Systems - Review of Systems Constitutional: denies: Chills, Fever EENT: No symptoms reported Cardiovascular: Edema. denies: Chest pain, Palpitations, Heart racing, Orthopnea, Dyspnea, Syncope, Dizziness, Lightheaded Respiratory: Short of breath - Chronic shortness of breath. denies: Cough Gastrointestinal: denies: Abdominal pain, Diarrhea, Nausea, Vomiting Musculoskeletal: No symptoms reported Skin: No symptoms reported Hematologic/Lymphatic: No symptoms reported Neurological/Psychological: No symptoms reported -: Yes All other systems reviewed and negative Physical Exam - Vital signs Vitals: Temp Pulse Resp BP Pulse Ox 98.0 F 73 16 111/67 100 08/11/20 10:55 08/11/20 10:55 08/11/20 10:55 08/11/20 10:55 08/11/20 10:55 Interpretation: Normal - General General appearance: Alert In distress: None - HEENT Head: Normocephalic, Atraumatic Eyes: Normal Pupils: PERRL Neck: Normal, Supple - Respiratory Respiratory status: No respiratory distress Chest status: Nontender Breath sounds: Normal. No: Rales, Rhonchi, Wheezing Chest palpation: Normal - Cardiovascular Rhythm: Regular Heart sounds: Normal auscultation Murmur: No Notes: Bilateral pitting edema approximately 2+ to the entire leg - Abdominal Inspection: Normal Distension: No distension Bowel sounds: Normal Tenderness: Nontender. No: Tender, McBurney's point, Rangel's sign, Guarding, Rebound Organomegaly: No organomegaly - Extremities General upper extremity: Normal inspection, Nontender, Normal color, Normal ROM, Normal temperature General lower extremity: Normal inspection, Nontender, Edema - Bilateral lower extremity edema with 2+ pitting edema, Normal color, Normal ROM, Normal temperature, Normal weight bearing - Neurological Neuro grossly intact: Yes Cognition: Normal Orientation: AAOx4 [place] Coma Scale Eye Opening: Spontaneous [place] Coma Scale Verbal: Oriented [place] Coma Scale Motor: Obeys Commands [place] Coma Scale Total: 15 Speech: Normal Cranial nerves: Normal Cerebellar coordination: Normal Motor strength normal: LUE, RUE, LLE, RLE Additional motor exam normals: 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 She just discharged him 2 days ago. We discussed his Doppler studies today as well as his lab work. We both agree that this is likely still a nutritional problem with his hypoalbuminemia. She thinks it is reasonable to go ahead and start on a small diuretic to help with the fluid but also encouraged the patient to elevate the legs and to use TOMMIE hose. I also informed her that the insulin prescription and thiamine did not go through. We agreed that I would write for the patient for those items. He is to follow-up with [facility] on Friday without fail with Dr. Barbosa. This is a schedule appointment. I encouraged him to return if any worsening symptoms. I spoke with the patient's sister as well about his care today and went over much of his hospital visit to include the echo that he got. I explained the insulin that was going to be written for him as well as need for TOMMIE hose and a small bit of diuretic. She agrees with the plan. Gave patient a little bit of Lasix today to help with the fluid on his legs. Also gave him his nighttime dose for his insulin. Patient agrees with the plan. He is not in diabetic ketoacidosis. We will discharge home. - Vital Signs Vital signs: Temp Pulse Resp BP Pulse Ox 98.0 F 73 12 121/81 99 08/11/20 10:55 08/11/20 10:55 08/11/20 17:01 08/11/20 17:01 08/11/20 17:01 - Laboratory Result Diagrams: 08/11/20 13:51 08/11/20 13:51 Laboratory results interpreted by me: 08/11/20 08/11/20 08/11/20 11:42 13:36 13:51 WBC 2.9 L RBC 3.59 L Hgb 11.2 L Hct 32.6 L Absolute Neuts (auto) 1.3 L Sodium Anion Gap BUN Creatinine Glucose POC Glucose 293 H Calcium AST Creatine Kinase NT-Pro-B Natriuret Pep Total Protein Albumin Urine Glucose (UA) >=500 H 08/11/20 08/11/20 08/11/20 13:51 13:51 14:44 WBC RBC Hgb Hct Absolute Neuts (auto) Sodium 131.0 L Anion Gap 4 L BUN 2 L Creatinine 0.38 L Glucose 290 H POC Glucose 317 H Calcium 7.6 L AST 16 L Creatine Kinase 37 L NT-Pro-B Natriuret Pep 682 H Total Protein 4.6 L Albumin 2.4 L Urine Glucose (UA) 08/11/20 08/11/20 17:01 17:43 WBC RBC Hgb Hct Absolute Neuts (auto) Sodium Anion Gap BUN Creatinine Glucose POC Glucose 256 H 343 H Calcium AST Creatine Kinase NT-Pro-B Natriuret Pep Total Protein Albumin Urine Glucose (UA) - Diagnostic Test Radiology reviewed: Image reviewed, Reports reviewed - EKG Interpretation by Me Additional EKG results interpreted by me: 08/12/20 02:16 Rate: 68 Rhythm: Sinus Interpretation: No STEMI, no significant ST changes. No LVH. No significant changes from prior on August 06, 2020. Discharge - Discharge Clinical Impression: Leg edema, Hypoalbuminemia, Hyperglycemia Condition: Stable Disposition: HOME, SELF-CARE Instructions: Edema, Peripheral ([facility]), Hyperglycemia ([facility]) Additional Instructions: Please keep your feet elevated and use compression hose. Take the water pill in the morning. Expect to urinate a little bit more frequently with this medicine. Get your insulin filled. Use good Rx to try to have a coupon. Follow-up with [facility] on Friday without fail. Please ask them if they have any coupons or samples for insulin. Return if any worsening symptoms. Prescriptions: Compr.stocking,Thigh,Reg,Large [Compression Thigh Stocking] 1 each MC DAILY #1 each Hydrochlorothiazide 12.5 mg PO DAILY #30 tablet Hum Insulin NPH/Reg Insulin Hm [Insulin 70-30 (NPH/Reg) 100 unit/mL] See Protocol SUBCUT ASDIR PRN #10 ml PRN Reason: Thiamine HCl [Thiamine 100 mg Tablet] 100 mg PO DAILY #30 tablet Referrals: [facility] [Provider Group] - 08/14/20 (as scheduled for PCP follow up)
[2020-08-11] MEDS ORDERED: FUROSEMIDE INJ/PF 20 MG/2 ML SDV IV ONE (16:38)
[2020-08-11] MEDS ORDERED: HUM INSULIN NPH/REG INSULIN HM 100 UNIT/1 ML 3 ML SUBCUT ONE (16:53)
--- NOTE | 2020-08-11 17:00 | RADIOLOGY REPORT (SQ) ---
EXAM DESCRIPTION: VENOUS BILATERAL LOWER IMAGES COMPLETED DATE/TIME: 08/11/2020 4:50 pm REASON FOR STUDY: bilateral leg swelling, recent hospitalization COMPARISON: None. TECHNIQUE: Dynamic and static lund scale and color images acquired of both lower extremity venous sy stems. Selected spectral images acquired with additional compression and augmentation maneuvers. Imag es stored on PACS. LIMITATIONS: None. FINDINGS: RIGHT LEG COMMON FEMORAL AND FEMORAL: Normal phasicity, compression and augmentation. No visualized echogenic m aterial on lund scale. No defects on color images. POPLITEAL: Normal compression and augmentation. No visualized echogenic material on lund scale. No de fects on color images. CALF VESSELS: Normal compression and augmentation. No visualized echogenic material on lund scale. No defects on color image. GSV AND SSV: Normal compression. No visualized echogenic material on lund scale. No defects on color images. ANY DEEP VENOUS INSUFFICIENCY: Not evaluated. ANY EVIDENCE OF POPLITEAL CYST: No. OTHER: No other significant finding. LEFT LEG COMMON FEMORAL AND FEMORAL: Normal phasicity, compression and augmentation. No visualized echogenic m aterial on lund scale. No defects on color images. POPLITEAL: Normal compression and augmentation. No visualized echogenic material on lund scale. No de fects on color images. CALF VESSELS: Normal compression and augmentation. No visualized echogenic material on lund scale. No defects on color images. GSV AND SSV: Normal compression. No visualized echogenic material on lund scale. No defects on color images. ANY DEEP VENOUS INSUFFICIENCY: Not evaluated. ANY EVIDENCE POPLITEAL CYST: No. OTHER: No other significant finding. IMPRESSION: NO EVIDENCE DVT OR SVT IN EITHER LEG. TECHNICAL DOCUMENTATION: JOB ID: [id number] 2010 [employer]- All Rights Reserved Reading location - IP/workstation name: [email or web address]
[2020-08-11 17:21] VITALS: BP 121/81
== END 2020-08-11 17:51 | disposition home or self-care (01) ==
LOC: ER 10:49
DX: R60.0 Localized edema (principal); E11.65 Type 2 diabetes mellitus with hyperglycemia; E88.09 Other disorders of plasma-protein metabolism, not elsewhere classified; F17.200 Nicotine dependence, unspecified, uncomplicated; J44.9 Chronic obstructive pulmonary disease, unspecified
CPT/HCPCS: 93005; 99285; 96372; 96374; 36415; 82962; 82550; 85025; 80053; 81001; 82803; 83880; 93970; 93010; J1940; J1815; J7030